=== PATIENT | female | born 1980 | race American Indian/Alaskan Native ===

== ENCOUNTER 2017-08-02 02:50 | Inpatient (IN) | payer OTHER ==
[2017-08-02 03:56] LABS: Basophils # (Auto) 0.1 K/mm3 (0.0-0.1); Basophils % (Auto) 0.7 % (0.0-1.8); Eosinophils # (Auto) 0.1 K/mm3 (0.0-0.4); Eosinophils % (Auto) 0.8 % (0.0-4.3); Hematocrit 37.4 % (30.3-42.9); Hemoglobin 12.1 gm/dl (10.1-14.3); Lymphocytes % (Auto) 33.9 % (13.4-35.0); Mean Corpuscular HGB Conc 32 % (30-34); Mean Corpuscular Volume 80 fl (79-97); Monocytes # (Auto) 0.7 K/mm3 (0.0-0.8); Monocytes % (Auto) 7.4 % (0.0-7.3); Red Cell Distribution Width 16.5 % (13.2-15.2)
[2017-08-02 05:28] LABS: BUN/Creatinine Ratio 17; Blood Urea Nitrogen 10 mg/dL (7-17); Calcium 8.8 mg/dL (8.4-10.2); Hemolysis Index 11
[2017-08-02 05:45] LABS: Mean Corpuscular Hemoglobin 26 pg (28-32); Platelet Count 285 K/mm3 (140-440)
[2017-08-02] MEDS ORDERED: K-DUR PO ONE (06:11)
[2017-08-02] MEDS ORDERED: ZOFRAN IV ONE (06:25)
[2017-08-02] MEDS ORDERED: LOPRESSOR IV ONE (06:25)
[2017-08-02] MEDS ORDERED: NORCO 5/325 PO ONE (06:25)
--- NOTE | 2017-08-02 06:30 | Emergency Department Report ---
ED Chest Pain HPI - General Chief Complaint: Chest Pain Stated Complaint: CHEST PAIN Time Seen by Provider: 08/02/17 06:10 Source: patient, EMS Mode of arrival: Stretcher Limitations: No Limitations - History of Present Illness Initial Comments: 37-year-old female presents to the emergency department with a complaint of some left-sided chest pain going on since about 1 AM this morning. She came in by EMS and received sublingual nitroglycerin and full dose aspirin. First the chest pain was more sharp and she says that the nitroglycerin helped with that but she still has rather intense dull pain/ pressure. It is associated with some nausea without vomiting, and some shortness of breath. She has a past medical history of CHF, diabetes, hypertension, kidney stones, asthma. Patient presents with very elevated blood pressure and says she is currently on lisinopril and hydrochlorothiazide but does not feel like the medications are working despite complaints. She also says that she was supposed to be switched from the lisinopril to another blood pressure medication because of a cough but she lost insurance and does not have a primary care physician or acupuncturist. She denies any tobacco or illicit drug use or abuse. No recent travel or sick contacts at home. She does feel like she is retaining some fluid to the legs. Severity scale (0 -10): 9 - Related Data Home Medications Medication Instructions Recorded Confirmed Last Taken Lisinopril [Zestril TAB] 40 mg PO QDAY 01/21/14 01/21/14 Unknown Previous Rx's Medication Instructions Recorded Last Taken Type Labetalol [Normodyne TAB] 200 mg PO BID #60 tablet 09/20/14 Unknown Rx Allergies Allergy/AdvReac Type Severity Reaction Status Date / Time haloperidol [From Haldol] Allergy Seizure Verified 11/11/13 17:44 haloperidol lactate Allergy Seizure Verified 11/11/13 17:44 [From Haldol] Heart Score - HEART Score History: Moderately suspicious EKG: Non-specific Age: < 45 Risk factors: > 3 risk factors or hx of atherosclerotic disease Troponin: < normal limit HEART Score: 4 - Critical Actions Critical Actions: 4-6 pts:12-16.6% risk of adverse cardiac event. Should be admitted ED Review of Systems ROS: Stated complaint: CHEST PAIN Other details as noted in HPI Comment: All other systems reviewed and negative Constitutional: denies: chills, fever Eyes: denies: eye pain, eye discharge, vision change ENT: denies: ear pain, throat pain Respiratory: shortness of breath. denies: cough Cardiovascular: chest pain, edema Gastrointestinal: nausea. denies: abdominal pain Genitourinary: denies: urgency, dysuria, discharge Musculoskeletal: denies: back pain, arthralgia Skin: denies: rash, lesions Neurological: denies: headache, numbness ED Past Medical Hx - Past Medical History Previous Medical History?: Yes Hx Hypertension: Yes Hx Heart Attack/AMI: No Hx Congestive Heart Failure: Yes Hx Diabetes: Yes Hx Deep Vein Thrombosis: No Hx Pulmonary Embolism: No Hx Liver Disease: No Hx Renal Disease: No Hx Seizures: Yes (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) Hx Kidney Stones: Yes Hx Asthma: Yes Hx COPD: No Hx Tuberculosis: No Hx Dementia: No Hx HIV: No Additional medical history: Endometriosis - Surgical History Past Surgical History?: Yes Hx Coronary Stent: No Hx Open Heart Surgery: No Hx Pacemaker: No Hx Internal Defibrillator: No Hx Cholecystectomy: No Hx Appendectomy: Yes Hx Breast Surgery: No Additional Surgical History: D&C - Social History Smoking Status: Never Smoker - Medications Home Medications: Home Medications Medication Instructions Recorded Confirmed Last Taken Type Lisinopril [Zestril TAB] 40 mg PO QDAY 01/21/14 01/21/14 Unknown History Labetalol [Normodyne TAB] 200 mg PO BID #60 tablet 09/20/14 Unknown Rx ED Physical Exam - General Limitations: No Limitations - Other Other exam information: GENERAL: The patient is well-developed well-nourished. HENT: Normocephalic. Atraumatic. Patient has moist mucous membranes. EYES: Extraocular motions are intact. Pupils equal reactive to light bilaterally. NECK: Supple. Trachea is midline. CHEST/LUNGS: Clear to auscultation. There is no respiratory distress noted. Chest pain is not reproducible to palpation of the chest wall. HEART/CARDIOVASCULAR: Regular. There is mild tachycardia. There is no murmur. ABDOMEN: Abdomen is soft, nontender. Patient has normal bowel sounds. Morbidly obese habitus. SKIN: Skin is warm and dry. Mild nonpitting swelling to the bilateral lower 70s. NEURO: The patient is awake, alert, and oriented. The patient is cooperative. The patient has no focal neurologic deficits. The patient has normal speech. MUSCULOSKELETAL: There is no tenderness or deformity. There is no limitation range of motion. There is no evidence of acute injury. ED Course Vital Signs 08/02/17 08/02/17 08/02/17 03:02 03:27 03:30 Pulse Rate 106 H 113 H 103 H Respiratory 17 20 17 Rate Blood Pressure 184/105 O2 Sat by Pulse Oximetry 08/02/17 08/02/17 08/02/17 03:31 03:46 04:00 Pulse Rate 100 H Respiratory 20 15 11 L Rate Blood Pressure 184/105 180/107 O2 Sat by Pulse 100 Oximetry 08/02/17 08/02/17 08/02/17 04:16 04:30 04:46 Pulse Rate Respiratory 13 12 12 Rate Blood Pressure 180/107 180/107 182/117 O2 Sat by Pulse Oximetry 08/02/17 08/02/17 08/02/17 05:00 05:16 05:30 Pulse Rate Respiratory 8 L 11 L 13 Rate Blood Pressure 193/133 193/133 187/108 O2 Sat by Pulse Oximetry 08/02/17 08/02/17 08/02/17 05:45 06:00 06:15 Pulse Rate Respiratory 15 38 H 16 Rate Blood Pressure 189/95 169/94 O2 Sat by Pulse Oximetry 08/02/17 08/02/17 08/02/17 06:45 07:01 07:15 Pulse Rate Respiratory 17 13 20 Rate Blood Pressure 175/125 146/90 146/90 O2 Sat by Pulse Oximetry 08/02/17 07:31 Pulse Rate Respiratory 16 Rate Blood Pressure 143/83 O2 Sat by Pulse Oximetry - Pulse Oximetry Interpretation Digit-Finger Initial Pulse Oximetry Readin O2 Sat by Pulse Oximetry: 100 Actions Taken: none Additional Comments: normal MARISA score - Marisa Score Age > 65: (0) No Aspirin use within the Past 7 Days: (0) No 3 or more CAD Risk Factors: (1) Yes 2 or more Angina events in past 24 hrs: (1) Yes Known CAD with more than 50% Stenosis: (0) No Elevated Cardiac Markers: (0) No ST Deviation Greater than 0.5mm: (0) No MARISA Score: 2 ED Medical Decision Making - Lab Data Result diagrams: 08/02/17 03:33 08/02/17 03:33 - EKG Data -: EKG Interpreted by Me EKG shows normal: sinus rhythm, axis, intervals, QRS complexes (LVH, Q waves to the septal leads and lead 3), ST-T waves (there is some early repolarization, T- wave inversions in 2 leads 1, aVL) Rate: tachycardia (105 bpm) - EKG Data When compared to previous EKG there are: changes noted (T-wave inversions to these 1 and aVL not previously seen) Interpretation: other (sinus tachycardia, LVH, Q waves to the inferior leads, T- wave inversions in 2 leads 1 and aVL) - Radiology Data Radiology results: report reviewed, image reviewed interpreted by me: Chest x-ray does not show any acute process. There are no pleural effusions, obvious pneumonia and there is no pneumothorax. VQ scan is low probability for pulmonary embolus - Medical Decision Making Patient presents with some chest pain that started last night. So far negative troponins 2 but she had an elevated and equivocal d-dimer. VQ scan done that is low probability for pulmonary embolism. Chest x-ray does not show any acute process. The patient has morbid obesity, hypertensive issues, diabetes and questionably a family history of early heart disease. She has not had a stress test in many years and therefore she will be admitted to the hospital for further evaluation and treatment and was accepted for admission by the hospitalist service. I spoke with Dr Lazo regarding this admission. - Differential Diagnosis OK, PE, Costochondritis, GERD Critical Care Time: No Critical care attestation.: If time is entered above; I have spent that time in minutes in the direct care of this critically ill patient, excluding procedure time. ED Disposition Clinical Impression: Hypertensive urgency, Hypokalemia Chest pain Qualifiers: Chest pain type: unspecified Qualified Code(s): R07.9 - Chest pain, unspecified Disposition: 09 OP ADMIT IP TO THIS HOSP Is pt being admited?: Yes Condition: Stable Instructions: Chest Pain (ED) Referrals: PRIMARY CARE, [Primary Care Provider] - 3-5 Days Time of Disposition: 10:04
--- NOTE | 2017-08-02 06:32 | XRay Report ---
FINAL REPORT EXAM: XR CHEST 1V AP HISTORY: CP TECHNIQUE: A portable upright view the chest was submitted. FINDINGS: The heart size is at the upper limits of normal. The lungs are clear. There is no evidence of congestion or effusion. There are EKG leads overlying the chest wall. The skeletal structures do not show any acute changes. IMPRESSION: No active chest disease.
--- NOTE | 2017-08-02 08:30 | Nuclear Medicine Report ---
LUNG SCAN, VENTILATION AND PERFUSION: History: Chest pain, elevated d-dimer. Technique: 5mci of Tc99m MAA was infused for the perfusion images. 15mci XE 133 gas was inhaled for the ventilatory images. Correlation is made with a chest x-ray dated 08/02/17. Findings: Inhalation of Xenon gas demonstrates a normal distribution of the activity throughout both lungs. The wash out phases show no focal retention of activity. After injection of Technetium 99m macroaggregated albumin gamma camera imaging of the lungs in multiple projections demonstrates normal pulmonary contours with a homogeneous distribution of activity. No focal areas of perfusion deficiency are identified. IMPRESSION: Low probability for pulmonary embolus.
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
[2017-08-02] MEDS ORDERED: SODIUM CHLORIDE FLUSH SYRINGE 10 ML IV PRN (10:14)
[2017-08-02 10:42] LABS: Basophils % (Auto) 0.5 % (0.0-1.8); Eosinophils # (Auto) 0.1 K/mm3 (0.0-0.4); Eosinophils % (Auto) 0.9 % (0.0-4.3); Hematocrit 32.8 % (30.3-42.9); Hemoglobin 10.7 gm/dl (10.1-14.3); Lymphocytes # (Auto) 2.4 K/mm3 (1.2-5.4); Lymphocytes % (Auto) 32.3 % (13.4-35.0); Mean Corpuscular HGB Conc 33 % (30-34); Mean Corpuscular Volume 78 fl (79-97); Monocytes # (Auto) 0.9 K/mm3 (0.0-0.8); Platelet Count 327 K/mm3 (140-440); Red Blood Count 4.23 M/mm3 (3.65-5.03); Red Cell Distribution Width 15.8 % (13.2-15.2)
[2017-08-02 10:43] LABS: Mean Corpuscular Hemoglobin 25 pg (28-32)
[2017-08-02 11:10] LABS: BUN/Creatinine Ratio 17; Blood Urea Nitrogen 10 mg/dL (7-17); Calcium 8.4 mg/dL (8.4-10.2); Hemolysis Index 8
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
[2017-08-02] MEDS: TYLENOL PO PRN (21:38)
[2017-08-02] MEDS: NORMODYNE PO SCH (21:39)
[2017-08-03] MEDS: TYLENOL PO PRN ×3 (03:38→22:06)
[2017-08-03] MEDS ORDERED: PERCOCET 5/325 PO ONE (06:26)
[2017-08-03] MEDS ORDERED: ZOFRAN PO PRN (06:27)
[2017-08-03] MEDS ORDERED: ZOFRAN IV PRN (06:37)
[2017-08-03] MEDS ORDERED: D50W (25GM) Syringe IV PRN (10:00)
[2017-08-03] MEDS ORDERED: NORVASC PO SCH ×2 (10:00)
[2017-08-03] MEDS ORDERED: LOVENOX SUB-Q SCH (10:00)
[2017-08-03] MEDS: HCTZ PO SCH (10:37)
[2017-08-03] MEDS: NORMODYNE PO SCH ×2 (10:37→22:07)
--- NOTE | 2017-08-03 10:40 | Progress Note ---
Assessment and Plan Chest pain, atypical Hypertension Obesity Recommend: Optimal blood pressure control. Thallium stress test ordered by the medical service will be completed tomorrow s /t 48hr wash out following ventilation scan. Subjective Date of service: 08/03/17 Interval history: Patient complains of headaches. Blood pressure is better. Objective Vital Signs Temp Pulse Resp Resp BP BP Pulse Ox 08/03/17 07:44 97.9 F 93 H 18 149/87 92 08/03/17 06:51 18 08/03/17 05:00 88 08/03/17 04:22 98.9 F 92 H 18 137/61 91 08/03/17 03:38 18 08/03/17 03:23 92 H 137/61 91 08/03/17 00:17 98.9 F 101 H 18 124/64 91 08/02/17 22:00 20 08/02/17 21:50 98 H 08/02/17 21:39 94 H 128/81 08/02/17 21:38 20 08/02/17 20:04 98.2 F 92 H 18 128/81 94 08/02/17 19:29 92 H 128/81 96 08/02/17 17:24 98.3 F 92 H 18 138/83 96 08/02/17 14:45 102 H 35 H 156/105 08/02/17 14:00 95 08/02/17 13:00 91 H 17 155/92 08/02/17 12:00 100 H 43 H 156/91 94 08/02/17 11:00 94 H 28 H 133/84 - Physical Examination General: No Apparent Distress HEENT: Positive: PERRL Cardiac: Positive: Reg Rate and Rhythm Neuro: Positive: Grossly Intact Extremities: Absent: edema - Labs and Meds CBC 08/02/17 Range/Units 10:25 WBC 7.5 (4.5-11.0) K/mm3 RBC 4.23 (3.65-5.03) M/mm3 Hgb 10.7 (10.1-14.3) gm/dl Hct 32.8 (30.3-42.9) % Plt Count 327 (140-440) K/mm3 Lymph # 2.4 (1.2-5.4) K/mm3 [place] # 0.9 H (0.0-0.8) K/mm3 Eos # 0.1 (0.0-0.4) K/mm3 Baso # 0.0 (0.0-0.1) K/mm3 Comprehensive Metabolic Panel 08/02/17 Range/Units 10:22 Sodium 140 (137-145) mmol/L Potassium 3.2 L (3.6-5.0) mmol/L Chloride 98.4 (98-107) mmol/L Carbon Dioxide 31 H (22-30) mmol/L BUN 10 (7-17) mg/dL Creatinine 0.6 L (0.7-1.2) mg/dL Glucose 153 H (65-100) mg/dL Calcium 8.4 (8.4-10.2) mg/dL
[2017-08-03] MEDS ORDERED: MOTRIN PO PRN (11:00)
[2017-08-03] MEDS ORDERED: PNEUMOVAX 23 IM ONE (12:00)
--- NOTE | 2017-08-03 12:27 | Progress Note ---
Assessment and Plan Assessment and plan: Chest pain. Patient will be scheduled for stress thallium in a.m. Cardiology consultation. Follow cardiac isoenzymes and serial EKG. Patient with elevated d-dimer but VQ scan was noted as low probability. Elevated d-dimer. As above. Accelerated hypertension. Start antihypertensive medications of labetalol twice a day, Norvasc daily and continue hydrochlorothiazide. Patient with likely allergy to lisinopril-cough. Allergy. Lisinopril. Diabetes mellitus type 2. ? Diet-controlled. Patient reports a previous history of gestational diabetes but also documented on her hospitalization of 2014. We will initiate sliding scale regular insulin and Accu-Cheks. Morbid Obesity. Patient with a BMI of 49.4. Patient will be counseled on dieting and weight loss are discharged. Probable OHS/MAAME. History Interval history: No new issues overnight Hospitalist Physical - Constitutional Vitals: Temp Pulse Resp BP Pulse Ox 97.9 F 99 H 18 149/87 92 08/03/17 07:44 08/03/17 10:37 08/03/17 07:44 08/03/17 10:37 08/03/17 07:44 General appearance: Present: no acute distress, obese - EENT Eyes: Present: PERRL, EOM intact ENT: hearing intact, clear oral mucosa, dentition normal - Neck Neck: Present: supple, normal ROM - Respiratory Respiratory effort: normal Respiratory: bilateral: CTA - Cardiovascular Rhythm: regular Heart Sounds: Present: S1 & S2. Absent: gallop, rub - Extremities Extremities: no ischemia, No edema, Full ROM - Abdominal General gastrointestinal: soft, non-tender, non-distended, normal bowel sounds - Integumentary Integumentary: Present: clear, warm, dry - Neurologic Neurologic: CNII-XII intact, moves all extremities Results - Labs CBC & Chem 7: 08/02/17 10:25 08/02/17 10:22 Labs: Laboratory Last Values WBC 7.5 K/mm3 (4.5-11.0) 08/02/17 10:25 RBC 4.23 M/mm3 (3.65-5.03) 08/02/17 10:25 Hgb 10.7 gm/dl (10.1-14.3) 08/02/17 10:25 Hct 32.8 % (30.3-42.9) 08/02/17 10:25 MCV 78 fl (79-97) L 08/02/17 10:25 MCH 25 pg (28-32) L 08/02/17 10:25 MCHC 33 % (30-34) 08/02/17 10:25 RDW 15.8 % (13.2-15.2) H 08/02/17 10:25 Plt Count 327 K/mm3 (140-440) 08/02/17 10:25 Lymph % (Auto) 32.3 % (13.4-35.0) 08/02/17 10:25 [place] % (Auto) 12.0 % (0.0-7.3) H 08/02/17 10:25 Eos % (Auto) 0.9 % (0.0-4.3) 08/02/17 10:25 Baso % (Auto) 0.5 % (0.0-1.8) 08/02/17 10:25 Lymph # 2.4 K/mm3 (1.2-5.4) 08/02/17 10:25 [place] # 0.9 K/mm3 (0.0-0.8) H 08/02/17 10:25 Eos # 0.1 K/mm3 (0.0-0.4) 08/02/17 10:25 Baso # 0.0 K/mm3 (0.0-0.1) 08/02/17 10:25 Seg Neutrophils % 54.3 % (40.0-70.0) 08/02/17 10:25 Seg Neutrophils # 4.1 K/mm3 (1.8-7.7) 08/02/17 10:25 D-Dimer 578.18 ng/mlDDU (0-234) H 08/02/17 06:43 Sodium 140 mmol/L (137-145) 08/02/17 10:22 Potassium 3.2 mmol/L (3.6-5.0) L 08/02/17 10:22 Chloride 98.4 mmol/L (98-107) 08/02/17 10:22 Carbon Dioxide 31 mmol/L (22-30) H 08/02/17 10:22 Anion Gap 14 mmol/L 08/02/17 10:22 BUN 10 mg/dL (7-17) 08/02/17 10:22 Creatinine 0.6 mg/dL (0.7-1.2) L 08/02/17 10:22 Estimated GFR > 60 ml/min 08/02/17 10:22 BUN/Creatinine Ratio 17 % 08/02/17 10:22 Glucose 153 mg/dL (65-100) H 08/02/17 10:22 POC Glucose 164 (70-105) H 08/03/17 07:19 Calcium 8.4 mg/dL (8.4-10.2) 08/02/17 10:22 Troponin T < 0.010 ng/mL (0.00-0.029) 08/02/17 09:39 NT-Pro-B Natriuret Pep 77.49 pg/mL (0-450) 08/02/17 06:37
[2017-08-03] MEDS: HumuLIN R SUB-Q SCH ×3 (13:05→22:09)
--- NOTE | 2017-08-04 07:39 | Discharge Summary ---
Providers - Providers Date of Admission: 08/02/17 10:17 Date of discharge: 08/04/17 Attending physician: SIGIFREDO GALLO 08/02/17 Consult to Cardiac Rehabilitation [CONS] Routine Reason For Exam: Phase I 08/02/17 10:14 Consult to Cardiology [CONS] Routine Consulting Provider: LA PAIGE Reason For Exam: cp Primary care physician: CHILD THERAPIST Hospitalization Reason for admission: cp Condition: Stable Hospital course: This is a 37-year-old morbidly obese female with significant past medical history of chronic hypertension who was noncompliant with medical therapy and presents through the emergency department with complaints of atypical chest pain primarily in the left upper chest unrelated to exertion and poorly characterized. On admission, patient was noted to have accelerated hypertension with a systolic blood pressure of 184. EKG revealed normal sinus rhythm with LVH but no ST-T wave changes. Cardiology was consulted and patient underwent thallium stress test which was found to be negative. Patient was noted have elevated d-dimer and underwent pulmonary imaging which was low probability for PE. Echocardiogram revealed global left ventricular systolic function that was normal with EF 55-60%. Patient did have mild to moderate concentric LVH. Right ventricular systolic pressure calculated at 35 mmHg feeling mild pulmonary hypertension. Etiology of chest pain is felt to be secondary to GERD. Patient's blood pressure was controlled with Norvasc and labetalol. Patient reported cough associated with REHAN inhibitor therefore discontinued and added to allergy list. Patient is felt to have received maximal hospital benefit and will be discharged home. Dedicated discharge time 32 minutes. Disposition: - TO HOME OR SELFCARE Time spent for discharge: 32 - Discharge Diagnoses (1) GERD (gastroesophageal reflux disease) Status: Acute (2) Chest pain Status: Acute (3) Hypertensive urgency Status: Acute (4) Accelerated hypertension Status: Acute Core Measure Documentation - Palliative Care Palliative Care/ Comfort Measures: Not Applicable - Core Measures Any of the following diagnoses?: none Exam - Constitutional Vitals: Temp Pulse Resp BP Pulse Ox 98.7 F 90 18 136/80 99 08/03/17 23:55 08/04/17 00:43 08/04/17 00:43 08/03/17 23:55 08/04/17 00:43 General appearance: Present: no acute distress, well-nourished - EENT Eyes: Present: PERRL ENT: hearing intact, clear oral mucosa - Neck Neck: Present: supple, normal ROM - Respiratory Respiratory effort: normal Respiratory: bilateral: CTA - Cardiovascular Heart Sounds: Present: S1 & S2. Absent: rub, click - Extremities Extremities: pulses symmetrical, No edema Peripheral Pulses: within normal limits - Abdominal General gastrointestinal: Present: soft, non-tender, non-distended, normal bowel sounds Female genitourinary: Present: normal - Integumentary Integumentary: Present: clear, warm, dry - Musculoskeletal Musculoskeletal: gait normal, strength equal bilaterally - Psychiatric Psychiatric: appropriate mood/affect, intact judgment & insight - Neurologic Neurologic: CNII-XII intact, moves all extremities Plan Activity: no restrictions Weight Bearing Status: Full Weight Bearing Diet: low fat, low cholesterol, low salt Follow up with: PRIMARY CAREMD [Primary Care Provider] - 3-5 Days LA PAIGE MD [Staff Physician] - 7 Days Prescriptions: amLODIPine [Norvasc] 10 mg PO QDAY #30 tablet Hydrochlorothiazide [HCTZ] 25 mg PO QDAY #30 tablet Labetalol [Normodyne TAB] 200 mg PO BID #60 tablet
[2017-08-04] MEDS ORDERED: LEXISCAN IV ONE (09:40)
[2017-08-04] MEDS ORDERED: LOVENOX SUB-Q SCH (10:00)
[2017-08-04] MEDS ORDERED: NORVASC PO SCH (10:00)
--- NOTE | 2017-08-04 11:47 | Progress Note ---
Assessment and Plan - Patient Problems (1) Chest pain Current Visit: Yes Status: Acute Plan to address problem: Patient has atypical chest pain, a thallium stress test was performed today, results are pending. Echocardiogram was normal left ventricular systolic function, ejection fraction 55-60%. (2) Hypertensive urgency Current Visit: Yes Status: Acute Plan to address problem: Hypertension management as outlined, continue medical management. Subjective Date of service: 08/04/17 Interval history: Patient underwent a Persantine thallium stress test, results are pending. Objective Vital Signs Temp Pulse Resp Resp BP BP Pulse Ox 08/04/17 10:19 100 H 152/83 08/04/17 10:18 101 H 152/83 08/04/17 10:17 96 H 163/98 08/04/17 10:16 101 H 152/97 08/04/17 10:15 109 H 137/81 08/04/17 10:14 110 H 147/83 08/04/17 09:57 87 147/83 08/04/17 08:00 98.9 F 08/04/17 07:34 91 H 20 136/94 97 08/04/17 05:17 81 153/73 92 08/04/17 00:43 90 18 99 08/03/17 23:55 98.7 F 89 20 136/80 96 08/03/17 22:07 94 H 137/83 08/03/17 22:06 20 08/03/17 22:00 20 08/03/17 21:00 110 H 08/03/17 20:25 91 H 150 H 137/83 93 08/03/17 16:19 98.0 F 102 H 24 126/77 87 - Physical Examination General: No Apparent Distress HEENT: Positive: PERRL Neck: Positive: neck supple Cardiac: Positive: Reg Rate and Rhythm Lungs: Positive: Decreased Breath Sounds Neuro: Positive: Grossly Intact Abdomen: Positive: Soft Skin: Positive: Clear Extremities: Absent: edema
[2017-08-04] MEDS: NORMODYNE PO SCH (12:29)
[2017-08-04] MEDS: HumuLIN R SUB-Q SCH ×2 (12:30→12:33)
[2017-08-04] MEDS: HCTZ PO SCH (12:30)
--- NOTE | 2017-08-04 13:09 | Treadmill Report ---
THALLIUM STRESS TEST REPORT LEFT VENTRICLE: Left ventricular chamber size is within normal limits. Perfusion study demonstrates somewhat heterogeneous uptake of the tracer, but no significant defects identified. Normal apical thinning is noted. Gated analysis demonstrates normal left ventricular systolic function, ejection fraction 56%. CONCLUSION: No demonstrable ischemia on thallium perfusion imaging. Negative study. JOB# [id number] CA/NTS
[2017-08-04 17:50] VITALS: BP 149/81
== END 2017-08-04 17:56 | disposition home or self-care (01) | DRG 392 ==
LOC: ED 02:50 → 4A 10:17
PROVIDERS: ADMIT Hospitalist; ATTEND Hospitalist
DX: K21.9 Gastro-esophageal reflux disease without esophagitis (principal); I16.0 Hypertensive urgency; I50.9 Heart failure, unspecified; I11.0 Hypertensive heart disease with heart failure; E11.9 Type 2 diabetes mellitus without complications; J45.909 Unspecified asthma, uncomplicated; E66.01 Morbid (severe) obesity due to excess calories; E87.6 Hypokalemia; Z68.42 Body mass index [BMI] 45.0-49.9, adult; Z88.6 Allergy status to analgesic agent; Z91.19 Patient's noncompliance with other medical treatment and regimen
CPT/HCPCS: 36415; 71045; 78452; 78582; 80048; 82962; 83880; 84484; 84703; 85025; 85379; 90732; 93005; 93010; 93017; 93306; 94660; 96374; 96375; A9502; A9540; A9558; J1650; J1815; J2405; J2785

== ENCOUNTER 2018-02-21 14:21 | Inpatient (IN) | payer OTHER ==
[2018-02-21] MEDS ORDERED: TYLENOL PO STA (14:28)
[2018-02-21] MEDS ORDERED: NACL 0.9% 500 ML 500 ML IV ONE (14:28)
[2018-02-21] MEDS ORDERED: TYLENOL ONE (14:32)
[2018-02-21 14:53] LABS: Basophils % (Auto) 0.5 % (0.0-1.8); Eosinophils % (Auto) 0.3 % (0.0-4.3); Hematocrit 37.3 % (30.3-42.9); Hemoglobin 12.3 gm/dl (10.1-14.3); Lymphocytes # (Auto) 1.5 K/mm3 (1.2-5.4); Lymphocytes % (Auto) 25.8 % (13.4-35.0); Mean Corpuscular HGB Conc 33 % (30-34); Mean Corpuscular Volume 80 fl (79-97); Monocytes # (Auto) 0.7 K/mm3 (0.0-0.8); Monocytes % (Auto) 11.6 % (0.0-7.3); Platelet Count 283 K/mm3 (140-440); Red Blood Count 4.66 M/mm3 (3.65-5.03); Red Cell Distribution Width 16.1 % (13.2-15.2)
[2018-02-21] MEDS ORDERED: NACL 0.9% 1000 ML 0 ML ONE (14:57)
[2018-02-21 15:00] LABS: INR 0.97 (0.87-1.13)
[2018-02-21 15:04] LABS: Alanine Aminotransferase 16 units/L (7-56); Albumin 3.2 g/dL (3.9-5); BUN/Creatinine Ratio 9; Blood Urea Nitrogen 7 mg/dL (7-17); Calcium 8.5 mg/dL (8.4-10.2); Hemolysis Index 23
[2018-02-21] MEDS ORDERED: NACL 0.9% 1000 ML IV ONE (15:17)
--- NOTE | 2018-02-21 15:36 | Emergency Department Report ---
ED General Adult HPI - General Chief complaint: Fever Stated complaint: HTN/HIGH SUGAR Time Seen by Provider: 02/21/18 14:48 Source: patient Mode of arrival: Ambulatory Limitations: No Limitations - History of Present Illness Initial comments: Patient is a 37-year-old female past medical history of diabetes high blood pressure and asthma who presents with shortness of breath. Patient's symptoms of vertigo on a home trial last couple days she has been having productive cough with mucus. She is also complaining of mild abdominal pain as a 4 out of 10. She states that she has been around her son who is then having asthma exacerbations and recent hospitalization. Patient states that she has not tried any [id number] medications and has had fever no nausea no vomiting no dysuria. Severity scale (0 -10): 0 - Related Data Previous Rx's Medication Instructions Recorded Last Taken Type Labetalol [Normodyne TAB] 200 mg PO BID #60 tablet 08/04/17 Unknown Rx amLODIPine [Norvasc] 10 mg PO QDAY #30 tablet 08/04/17 Unknown Rx hydroCHLOROthiazide [HCTZ] 25 mg PO QDAY #30 tablet 08/04/17 Unknown Rx Allergies Allergy/AdvReac Type Severity Reaction Status Date / Time haloperidol [From Haldol] Allergy Seizure Verified 11/11/13 17:44 haloperidol lactate Allergy Seizure Verified 11/11/13 17:44 [From Haldol] lisinopril Allergy Unknown Verified 08/02/17 10:06 ED Review of Systems ROS: Stated complaint: HTN/HIGH SUGAR Other details as noted in HPI Constitutional: denies: chills, fever Eyes: denies: eye pain, eye discharge, vision change ENT: denies: ear pain, throat pain Respiratory: cough, shortness of breath. denies: wheezing Cardiovascular: denies: chest pain, palpitations Endocrine: no symptoms reported Gastrointestinal: denies: abdominal pain, nausea, diarrhea Genitourinary: denies: urgency, dysuria, discharge Musculoskeletal: denies: back pain, joint swelling, arthralgia Skin: denies: rash, lesions Neurological: denies: headache, weakness, paresthesias Psychiatric: denies: anxiety, depression Hematological/Lymphatic: denies: easy bleeding, easy bruising ED Past Medical Hx - Past Medical History Previous Medical History?: Yes Hx Hypertension: Yes Hx Heart Attack/AMI: No Hx Congestive Heart Failure: Yes Hx Diabetes: Yes Hx Deep Vein Thrombosis: No Hx Pulmonary Embolism: No Hx Liver Disease: No Hx Renal Disease: No Hx Seizures: Yes (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) Hx Kidney Stones: Yes Hx Asthma: Yes Hx COPD: No Hx Tuberculosis: No Hx Dementia: No Hx HIV: No Additional medical history: Endometriosis - Surgical History Past Surgical History?: Yes Hx Coronary Stent: No Hx Open Heart Surgery: No Hx Pacemaker: No Hx Internal Defibrillator: No Hx Cholecystectomy: No Hx Appendectomy: Yes Hx Breast Surgery: No Additional Surgical History: D&C - Social History Smoking Status: Never Smoker Substance Use Type: None - Medications Home Medications: Home Medications Medication Instructions Recorded Confirmed Last Taken Type Labetalol [Normodyne TAB] 200 mg PO BID #60 tablet 08/04/17 Unknown Rx amLODIPine [Norvasc] 10 mg PO QDAY #30 tablet 08/04/17 Unknown Rx hydroCHLOROthiazide [HCTZ] 25 mg PO QDAY #30 tablet 08/04/17 Unknown Rx ED Physical Exam - General Limitations: No Limitations General appearance: alert, in no apparent distress - Head Head exam: Present: atraumatic, normocephalic - Eye Eye exam: Present: normal appearance - ENT ENT exam: Present: mucous membranes moist - Neck Neck exam: Present: normal inspection - Respiratory Respiratory exam: Present: normal lung sounds bilaterally. Absent: respiratory distress - Cardiovascular Cardiovascular Exam: Present: normal rhythm, tachycardia. Absent: systolic murmur, diastolic murmur, rubs, gallop - GI/Abdominal GI/Abdominal exam: Present: soft, normal bowel sounds - Extremities Exam Extremities exam: Present: normal inspection - Back Exam Back exam: Present: normal inspection - Neurological Exam Neurological exam: Present: alert, oriented X3 - Psychiatric Psychiatric exam: Present: normal affect, normal mood - Skin Skin exam: Present: warm, dry, intact, normal color. Absent: rash ED Course Vital Signs 02/21/18 02/21/18 02/21/18 14:25 17:02 17:06 Temperature 101.2 F H 100 F H Pulse Rate 127 H 112 H Respiratory 24 21 21 Rate Blood Pressure 194/107 Blood Pressure 174/103 [Left] O2 Sat by Pulse 94 95 95 Oximetry 02/21/18 18:00 Temperature Pulse Rate 111 H Respiratory 19 Rate Blood Pressure Blood Pressure 181/100 [Left] O2 Sat by Pulse 95 Oximetry ED Medical Decision Making - Lab Data Result diagrams: 02/21/18 14:50 02/21/18 14:35 Lab Results 02/21/18 02/21/18 02/21/18 Range/Units 14:28 14:35 14:35 WBC (4.5-11.0) K/mm3 RBC (3.65-5.03) M/mm3 Hgb (10.1-14.3) gm/dl Hct (30.3-42.9) % MCV (79-97) fl MCH (28-32) pg MCHC (30-34) % RDW (13.2-15.2) % Plt Count (140-440) K/mm3 Lymph % (Auto) (13.4-35.0) % Clark % (Auto) (0.0-7.3) % Eos % (Auto) (0.0-4.3) % Baso % (Auto) (0.0-1.8) % Lymph # (1.2-5.4) K/mm3 Clark # (0.0-0.8) K/mm3 Eos # (0.0-0.4) K/mm3 Baso # (0.0-0.1) K/mm3 Seg Neutrophils % (40.0-70.0) % Seg Neutrophils # (1.8-7.7) K/mm3 PT (12.2-14.9) Sec. INR (0.87-1.13) VBG pH (7.320-7.420) Sodium 133 L (137-145) mmol/L Potassium 2.9 L* (3.6-5.0) mmol/L Chloride 90.2 L (98-107) mmol/L Carbon Dioxide 28 (22-30) mmol/L Anion Gap 18 mmol/L BUN 7 (7-17) mg/dL Creatinine 0.8 (0.7-1.2) mg/dL Estimated GFR > 60 ml/min BUN/Creatinine Ratio 9 % Glucose 275 H (65-100) mg/dL POC Glucose 268 H (70-105) Lactic Acid 3.50 H* (0.7-2.0) mmol/L Calcium 8.5 (8.4-10.2) mg/dL Total Bilirubin 0.30 (0.1-1.2) mg/dL AST 25 (5-40) units/L ALT 16 (7-56) units/L Alkaline Phosphatase 70 (35-129) units/L Total Protein 7.9 (6.3-8.2) g/dL Albumin 3.2 L (3.9-5) g/dL Albumin/Globulin Ratio 0.7 % Urine Color (Yellow) Urine Turbidity (Clear) Urine pH (5.0-7.0) Ur Specific Hammond (1.003-1.030) Urine Protein (Negative) mg/dL Urine Glucose (UA) (Negative) mg/dL Urine Ketones (Negative) mg/dL Urine Blood (Negative) Urine Nitrite (Negative) Urine Bilirubin (Negative) Urine Urobilinogen (<2.0) mg/dL Ur Leukocyte Esterase (Negative) Urine WBC (Auto) (0.0-6.0) /HPF Urine RBC (Auto) (0.0-6.0) /HPF U Epithel Cells (Auto) (0-13.0) /HPF Urine Mucus /HPF 02/21/18 02/21/18 02/21/18 Range/Units 14:35 14:50 14:50 WBC 5.9 (4.5-11.0) K/mm3 RBC 4.66 (3.65-5.03) M/mm3 Hgb 12.3 (10.1-14.3) gm/dl Hct 37.3 (30.3-42.9) % MCV 80 (79-97) fl MCH 26 L (28-32) pg MCHC 33 (30-34) % RDW 16.1 H (13.2-15.2) % Plt Count 283 (140-440) K/mm3 Lymph % (Auto) 25.8 (13.4-35.0) % Clark % (Auto) 11.6 H (0.0-7.3) % Eos % (Auto) 0.3 (0.0-4.3) % Baso % (Auto) 0.5 (0.0-1.8) % Lymph # 1.5 (1.2-5.4) K/mm3 Clark # 0.7 (0.0-0.8) K/mm3 Eos # 0.0 (0.0-0.4) K/mm3 Baso # 0.0 (0.0-0.1) K/mm3 Seg Neutrophils % 61.8 (40.0-70.0) % Seg Neutrophils # 3.6 (1.8-7.7) K/mm3 PT 13.3 (12.2-14.9) Sec. INR 0.97 (0.87-1.13) VBG pH 7.507 H (7.320-7.420) Sodium (137-145) mmol/L Potassium (3.6-5.0) mmol/L Chloride (98-107) mmol/L Carbon Dioxide (22-30) mmol/L Anion Gap mmol/L BUN (7-17) mg/dL Creatinine (0.7-1.2) mg/dL Estimated GFR ml/min BUN/Creatinine Ratio % Glucose (65-100) mg/dL POC Glucose (70-105) Lactic Acid (0.7-2.0) mmol/L Calcium (8.4-10.2) mg/dL Total Bilirubin (0.1-1.2) mg/dL AST (5-40) units/L ALT (7-56) units/L Alkaline Phosphatase (35-129) units/L Total Protein (6.3-8.2) g/dL Albumin (3.9-5) g/dL Albumin/Globulin Ratio % Urine Color (Yellow) Urine Turbidity (Clear) Urine pH (5.0-7.0) Ur Specific Hammond (1.003-1.030) Urine Protein (Negative) mg/dL Urine Glucose (UA) (Negative) mg/dL Urine Ketones (Negative) mg/dL Urine Blood (Negative) Urine Nitrite (Negative) Urine Bilirubin (Negative) Urine Urobilinogen (<2.0) mg/dL Ur Leukocyte Esterase (Negative) Urine WBC (Auto) (0.0-6.0) /HPF Urine RBC (Auto) (0.0-6.0) /HPF U Epithel Cells (Auto) (0-13.0) /HPF Urine Mucus /HPF 02/21/18 02/21/18 02/21/18 Range/Units 15:15 16:20 17:15 WBC (4.5-11.0) K/mm3 RBC (3.65-5.03) M/mm3 Hgb (10.1-14.3) gm/dl Hct (30.3-42.9) % MCV (79-97) fl MCH (28-32) pg MCHC (30-34) % RDW (13.2-15.2) % Plt Count (140-440) K/mm3 Lymph % (Auto) (13.4-35.0) % Clark % (Auto) (0.0-7.3) % Eos % (Auto) (0.0-4.3) % Baso % (Auto) (0.0-1.8) % Lymph # (1.2-5.4) K/mm3 Clark # (0.0-0.8) K/mm3 Eos # (0.0-0.4) K/mm3 Baso # (0.0-0.1) K/mm3 Seg Neutrophils % (40.0-70.0) % Seg Neutrophils # (1.8-7.7) K/mm3 PT (12.2-14.9) Sec. INR (0.87-1.13) VBG pH (7.320-7.420) Sodium (137-145) mmol/L Potassium (3.6-5.0) mmol/L Chloride (98-107) mmol/L Carbon Dioxide (22-30) mmol/L Anion Gap mmol/L BUN (7-17) mg/dL Creatinine (0.7-1.2) mg/dL Estimated GFR ml/min BUN/Creatinine Ratio % Glucose (65-100) mg/dL POC Glucose (70-105) Lactic Acid 3.70 H* 1.90 (0.7-2.0) mmol/L Calcium (8.4-10.2) mg/dL Total Bilirubin (0.1-1.2) mg/dL AST (5-40) units/L ALT (7-56) units/L Alkaline Phosphatase (35-129) units/L Total Protein (6.3-8.2) g/dL Albumin (3.9-5) g/dL Albumin/Globulin Ratio % Urine Color Yellow (Yellow) Urine Turbidity Clear (Clear) Urine pH 6.0 (5.0-7.0) Ur Specific Hammond 1.009 (1.003-1.030) Urine Protein 100 mg/dl (Negative) mg/dL Urine Glucose (UA) Neg (Negative) mg/dL Urine Ketones Neg (Negative) mg/dL Urine Blood Mod (Negative) Urine Nitrite Neg (Negative) Urine Bilirubin Neg (Negative) Urine Urobilinogen < 2.0 (<2.0) mg/dL Ur Leukocyte Esterase Neg (Negative) Urine WBC (Auto) 3.0 (0.0-6.0) /HPF Urine RBC (Auto) 2.0 (0.0-6.0) /HPF U Epithel Cells (Auto) 1.0 (0-13.0) /HPF Urine Mucus Few /HPF - EKG Data -: EKG Interpreted by Me - EKG Data 02/21/18 18:01 EKG shows sinus tachycardia at rate [address] segment elevation or T wave inversion normal axis - Radiology Data Radiology results: report reviewed Chest x-ray: Shows new patchy left lobe infiltrate concerning for pneumonia - Medical Decision Making Chief medical diagnosis: Sepsis secondary to Pneumonia Differential medical diagnosis: Urinary tract infection, hypokalemia I'll give patient 30 mL per kilo bolus, IV fluids, CBC BMP chest x-ray IV antibiotics and home patient to the hospital given her medical comorbidities and patient being septic. Discussed plan with patient agrees with plan Critical Care Time: Yes (40) Critical care attestation.: If time is entered above; I have spent that time in minutes in the direct care of this critically ill patient, excluding procedure time. Critical care time spent patient's bedside 20 minutes Critical care time spent patient's family 10 minutes Critical care time spent reviewing imaging and laboratory findings 10 minutes ED Disposition Clinical Impression: Hypokalemia Pneumonia Qualifiers: Pneumonia type: due to unspecified organism Laterality: left Lung location: lower lobe of lung Qualified Code(s): J18.1 - Lobar pneumonia, unspecified organism Sepsis Qualifiers: Sepsis type: sepsis due to unspecified organism Qualified Code(s): A41.9 - Sepsis, unspecified organism Disposition: 09 OP ADMIT IP TO THIS HOSP Is pt being admited?: Yes Does the pt Need Aspirin: No Condition: Stable Instructions: Bacterial Pneumonia (ED) Referrals: PRIMARY CARE, [Primary Care Provider] - 3-5 Days
--- NOTE | 2018-02-21 15:57 | XRay Report ---
FINAL REPORT EXAM: XR CHEST 1V AP HISTORY: possible Sepsis COMPARISON: Chest radiograph performed on 08/02/2017 TECHNIQUE: Single frontal view of the chest FINDINGS: The cardiomediastinal silhouette is normal in appearance. There is new patchy opacity in the left midlung. No pleural effusion or pneumothorax. No acute bony or soft tissue abnormality. IMPRESSION: New patchy opacity in the left midlung concerning for pneumonia.
[2018-02-21] MEDS: ROCEPHIN/NS 2 GM/100 ML 2 GM/100 ML BAG IV SCH (16:31)
[2018-02-21 16:53] LABS: Bilirubin,Urine NEG (Negative); Blood,Urine MOD (Negative); Color,Urine Yellow (Yellow); Mucus,Urine FEW /HPF; Urobilinogen,Urine < 2.0 mg/dL (<2.0)
[2018-02-21] MEDS: ZITHROMAX 500 MG in NACL 0.9% 250ML 250 ML IV SCH (17:02)
[2018-02-21] MEDS ORDERED: NACL 0.9% 1000 ML 1,000 ML ONE (18:20)
[2018-02-21] MEDS ORDERED: ROBITUSSIN AC PO ONE (18:35)
[2018-02-21] MEDS: LOVENOX SUB-Q SCH (18:54)
[2018-02-21] MEDS ORDERED: LOVENOX SUB-Q SCH (19:00)
[2018-02-21] MEDS ORDERED: K-DUR PO ONE ×2 (19:12→21:09)
[2018-02-21] MEDS ORDERED: DILAUDID ONE (19:31)
[2018-02-21] MEDS: DILAUDID IV PRN (19:31)
--- NOTE | 2018-02-21 20:49 | History and Physical Report ---
History of Present Illness Date of examination: 02/21/18 Date of admission: 02/21/18 18:29 Chief complaint: Fever cough and shortness of breath for 2 days History of present illness: History of Present Illness: 37-year-old -[place] female with morbid obesity hypertension type 2 diabetes and pericardial disease comes in for shortness of breath for the last 2 days. Also fever. Also mild abdominal pain in the epigastric region. Patient has been coughing mucoid sputum and having low-grade fever and body aches. Patient's son had asthma exacerbation in the last few days. No recent travel. No chest pain. Shortness of breath on minimal exertion. Also wheezing present. Past Medical History Previous Medical History?: Yes Hx Hypertension: Y Hx Congestive Heart Failure: Yes Hx Diabetes: Yes Hx Seizures: Yes (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) Hx Kidney Stones: Yes Hx Asthma: Yes Additional medical history: Endometriosis Surgical History Hx Appendectomy: Yes Additional Surgical History: D&C Social History Smoking Status: Never Smoker Substance Use Type: None Family history Htn Medications Home Medications: Home Medications Medication Instructions Recorded Confirmed Last Taken Type Labetalol [Normodyne TAB] 200 mg PO BID #60 tablet 08/04/17 Unknown Rx amLODIPine [Norvasc] 10 mg PO QDAY #30 tablet 08/04/17 Unknown Rx hydroCHLOROthiazide [HCTZ] 25 mg PO QDAY #30 tablet 08/04/17 Unknown Rx Review of Systems ROS: Stated complaint: HTN/HIGH SUGAR Other details as noted in HPI Constitutional: denies: chills, fever Eyes: denies: eye pain, eye discharge, vision change ENT: denies: ear pain, throat pain Respiratory: cough, shortness of breath. denies: wheezing Cardiovascular: denies: chest pain, palpitations Endocrine: no symptoms reported Gastrointestinal: denies: abdominal pain, nausea, diarrhea Genitourinary: denies: urgency, dysuria, discharge Musculoskeletal: denies: back pain, joint swelling, arthralgia Skin: denies: rash, lesions Neurological: denies: headache, weakness, paresthesias Psychiatric: denies: anxiety, depression Hematological/Lymphatic: denies: easy bleeding, easy bruising Medications and Allergies Allergies Allergy/AdvReac Type Severity Reaction Status Date / Time haloperidol [From Haldol] Allergy Seizure Verified 11/11/13 17:44 haloperidol lactate Allergy Seizure Verified 11/11/13 17:44 [From Haldol] lisinopril Allergy Unknown Verified 08/02/17 10:06 Home Medications Medication Instructions Recorded Confirmed Last Taken Type Labetalol [Normodyne TAB] 200 mg PO BID #60 tablet 08/04/17 Unknown Rx amLODIPine [Norvasc] 10 mg PO QDAY #30 tablet 08/04/17 Unknown Rx hydroCHLOROthiazide [HCTZ] 25 mg PO QDAY #30 tablet 08/04/17 Unknown Rx Active Meds: Active Medications Enoxaparin Sodium (Lovenox) 40 mg SUB-Q QDAY [facility] Last Admin: 02/21/18 18:54 Dose: 40 mg Documented by: Hydromorphone HCl (Dilaudid) 0.5 mg IV Q3H PRN PRN Reason: Pain , Severe (7-10) Last Admin: 02/21/18 19:31 Dose: 0.5 mg Documented by: Azithromycin 500 mg/ Sodium (Chloride) 250 mls @ 250 mls/hr IV Q24HR MICHELLE; Protocol Last Admin: 02/21/18 17:02 Dose: 250 mls/hr Documented by: Ceftriaxone Sodium (Rocephin/Ns 2 Gm/100 Ml) 2 gm in 100 mls @ 200 mls/hr IV Q24HR MICEHLLE; Protocol Last Admin: 02/21/18 16:31 Dose: 200 mls/hr Documented by: Exam - Physical Exam Narrative exam: Lying in bed comfortably - Constitutional Vitals: Temp Pulse Resp BP Pulse Ox 99.6 F 106 H 20 152/86 92 02/21/18 19:25 02/21/18 19:25 02/21/18 19:31 02/21/18 19:25 02/21/18 19:25 General appearance: Present: mild distress, well-nourished - EENT Eyes: Present: PERRL ENT: hearing intact, clear oral mucosa - Neck Neck: Present: supple, normal ROM - Respiratory Respiratory effort: normal Respiratory: right: rales, bilateral: CTA, rhonchi - Cardiovascular Heart rate: 122 Rhythm: regular Heart Sounds: Present: S1 & S2. Absent: rub, click - Extremities Extremities: no ischemia, pulses intact, pulses symmetrical, No edema Peripheral Pulses: within normal limits - Abdominal General gastrointestinal: Present: soft, non-tender, non-distended, normal bowel sounds Female genitourinary: Present: normal - Integumentary Integumentary: Present: clear, warm, dry - Musculoskeletal Musculoskeletal: gait normal, strength equal bilaterally - Psychiatric Psychiatric: appropriate mood/affect, intact judgment & insight - Neurologic Neurologic: CNII-XII intact, moves all extremities - Allied Health Allied health notes reviewed: nursing, case management Results - Labs CBC & Chem 7: 02/21/18 14:50 02/21/18 14:35 Labs: Laboratory Last Values WBC 5.9 K/mm3 (4.5-11.0) 02/21/18 14:50 RBC 4.66 M/mm3 (3.65-5.03) 02/21/18 14:50 Hgb 12.3 gm/dl (10.1-14.3) 02/21/18 14:50 Hct 37.3 % (30.3-42.9) 02/21/18 14:50 MCV 80 fl (79-97) 02/21/18 14:50 MCH 26 pg (28-32) L 02/21/18 14:50 MCHC 33 % (30-34) 02/21/18 14:50 RDW 16.1 % (13.2-15.2) H 02/21/18 14:50 Plt Count 283 K/mm3 (140-440) 02/21/18 14:50 Lymph % (Auto) 25.8 % (13.4-35.0) 02/21/18 14:50 [place] % (Auto) 11.6 % (0.0-7.3) H 02/21/18 14:50 Eos % (Auto) 0.3 % (0.0-4.3) 02/21/18 14:50 Baso % (Auto) 0.5 % (0.0-1.8) 02/21/18 14:50 Lymph # 1.5 K/mm3 (1.2-5.4) 02/21/18 14:50 [place] # 0.7 K/mm3 (0.0-0.8) 02/21/18 14:50 Eos # 0.0 K/mm3 (0.0-0.4) 02/21/18 14:50 Baso # 0.0 K/mm3 (0.0-0.1) 02/21/18 14:50 Seg Neutrophils % 61.8 % (40.0-70.0) 02/21/18 14:50 Seg Neutrophils # 3.6 K/mm3 (1.8-7.7) 02/21/18 14:50 PT 13.3 Sec. (12.2-14.9) 02/21/18 14:50 INR 0.97 (0.87-1.13) 02/21/18 14:50 VBG pH 7.507 (7.320-7.420) H 02/21/18 14:35 Sodium 133 mmol/L (137-145) L 02/21/18 14:35 Potassium 2.9 mmol/L (3.6-5.0) L* 02/21/18 14:35 Chloride 90.2 mmol/L (98-107) L 02/21/18 14:35 Carbon Dioxide 28 mmol/L (22-30) 02/21/18 14:35 Anion Gap 18 mmol/L 02/21/18 14:35 BUN 7 mg/dL (7-17) 02/21/18 14:35 Creatinine 0.8 mg/dL (0.7-1.2) 02/21/18 14:35 Estimated GFR > 60 ml/min 02/21/18 14:35 BUN/Creatinine Ratio 9 % 02/21/18 14:35 Glucose 275 mg/dL (65-100) H 02/21/18 14:35 POC Glucose 268 (70-105) H 02/21/18 14:28 Lactic Acid 1.90 mmol/L (0.7-2.0) 02/21/18 17:15 Calcium 8.5 mg/dL (8.4-10.2) 02/21/18 14:35 Total Bilirubin 0.30 mg/dL (0.1-1.2) 02/21/18 14:35 AST 25 units/L (5-40) 02/21/18 14:35 ALT 16 units/L (7-56) 02/21/18 14:35 Alkaline Phosphatase 70 units/L (35-129) 02/21/18 14:35 Total Protein 7.9 g/dL (6.3-8.2) 02/21/18 14:35 Albumin 3.2 g/dL (3.9-5) L 02/21/18 14:35 Albumin/Globulin Ratio 0.7 % 02/21/18 14:35 Urine Color Yellow (Yellow) 02/21/18 16:20 Urine Turbidity Clear (Clear) 02/21/18 16:20 Urine pH 6.0 (5.0-7.0) 02/21/18 16:20 Ur Specific [place] 1.009 (1.003-1.030) 02/21/18 16:20 Urine Protein 100 mg/dl mg/dL (Negative) 02/21/18 16:20 Urine Glucose (UA) Neg mg/dL (Negative) 02/21/18 16:20 Urine Ketones Neg mg/dL (Negative) 02/21/18 16:20 Urine Blood Mod (Negative) 02/21/18 16:20 Urine Nitrite Neg (Negative) 02/21/18 16:20 Urine Bilirubin Neg (Negative) 02/21/18 16:20 Urine Urobilinogen < 2.0 mg/dL (<2.0) 02/21/18 16:20 Ur Leukocyte Esterase Neg (Negative) 02/21/18 16:20 Urine WBC (Auto) 3.0 /HPF (0.0-6.0) 02/21/18 16:20 Urine RBC (Auto) 2.0 /HPF (0.0-6.0) 02/21/18 16:20 U Epithel Cells (Auto) 1.0 /HPF (0-13.0) 02/21/18 16:20 Urine Mucus Few /HPF 02/21/18 16:20 Influenza A (Rapid) Negative (Negative) 02/21/18 19:24 Influenza B (Rapid) Negative (Negative) 02/21/18 19:24 Short CBC 02/21/18 Range/Units 14:50 WBC 5.9 (4.5-11.0) K/mm3 Hgb 12.3 (10.1-14.3) gm/dl Hct 37.3 (30.3-42.9) % Plt Count 283 (140-440) K/mm3 BMP 02/21/18 14:35 Sodium 133 L Potassium 2.9 L* Chloride 90.2 L Carbon Dioxide 28 BUN 7 Creatinine 0.8 Glucose 275 H Calcium 8.5 Liver Function 02/21/18 Range/Units 14:35 Total Bilirubin 0.30 (0.1-1.2) mg/dL AST 25 (5-40) units/L ALT 16 (7-56) units/L Alkaline Phosphatase 70 (35-129) units/L Albumin 3.2 L (3.9-5) g/dL Urine 02/21/18 Range/Units 16:20 Urine Color Yellow (Yellow) Urine pH 6.0 (5.0-7.0) Ur Specific [place] 1.009 (1.003-1.030) Urine Protein 100 mg/dl (Negative) mg/dL Urine Glucose (UA) Neg (Negative) mg/dL Short CBC 02/21/18 Range/Units 14:50 WBC 5.9 (4.5-11.0) K/mm3 Hgb 12.3 (10.1-14.3) gm/dl Hct 37.3 (30.3-42.9) % Plt Count 283 (140-440) K/mm3 BMP 02/21/18 14:35 Sodium 133 L Potassium 2.9 L* Chloride 90.2 L Carbon Dioxide 28 BUN 7 Creatinine 0.8 Glucose 275 H Calcium 8.5 Liver Function 02/21/18 Range/Units 14:35 Total Bilirubin 0.30 (0.1-1.2) mg/dL AST 25 (5-40) units/L ALT 16 (7-56) units/L Alkaline Phosphatase 70 (35-129) units/L Albumin 3.2 L (3.9-5) g/dL Urine 02/21/18 Range/Units 16:20 Urine Color Yellow (Yellow) Urine pH 6.0 (5.0-7.0) Ur Specific [place] 1.009 (1.003-1.030) Urine Protein 100 mg/dl (Negative) mg/dL Urine Glucose (UA) Neg (Negative) mg/dL - Imaging and Cardiology EKG: report reviewed (sinus tachycardia heart rate of 125/minute LVH by voltage criteria no acute ST-T wave changes EKG interpreted by me) Chest x-ray: report reviewed Imaging and Cardiology: Chest x-ray FINDINGS: The cardiomediastinal silhouette is normal in appearance. There is new patchy opacity in the left midlung. No pleural effusion or pneumothorax. No acute bony or soft tissue abnormality. IMPRESSION: New patchy opacity in the left midlung concerning for pneumonia. Assessment and Plan Advance Directives: Yes (full code) VTE prophylaxis?: Chemical Plan of care discussed with patient/family: Yes - Patient Problems (1) SIRS (systemic inflammatory response syndrome) Current Visit: Yes Status: Acute Plan to address problem: Clinical picture consistent with SIRS Elevated lactic acid White count is not elevated Patient is not hypotensive (2) Pneumonia Current Visit: Yes Status: Acute Qualifiers: Pneumonia type: due to unspecified organism Laterality: left Lung location: lower lobe of lung Qualified Code(s): J18.1 - Lobar pneumonia, unspecified organism Plan to address problem: Left lung pneumonia in the mid lung region IV ceftriaxone and Zithromax initiated (3) Hypokalemia Current Visit: Yes Status: Acute Plan to address problem: Secondary to hydrochlorothiazide Hydrochlorothiazide discontinued Does not need to be on hydrochlorothiazide Losartan 100 mg by mouth daily added Supplemented (4) Hypertension Current Visit: Yes Status: Chronic Qualifiers: Hypertension type: essential hypertension Qualified Code(s): I10 - Essential (primary) hypertension Plan to address problem: Added losartan Hydrochlorothiazide discontinued because of the hypokalemia Patient was not on potassium supplement before admission Continue labetalol (5) Type 2 diabetes mellitus Current Visit: Yes Status: Chronic Qualifiers: Diabetes mellitus senior care insulin use: without senior care use Plan to address problem: Continue coverage Check A1c (6) Morbid obesity Current Visit: Yes Status: Chronic Plan to address problem: Patient is to follow-up with bariatric surgery To be counseled (7) DVT prophylaxis Current Visit: No Status: Acute Plan to address problem: Lovenox 40 mg subcutaneous daily and GI prophylaxis
[2018-02-21] MEDS ORDERED: SODIUM CHLORIDE FLUSH SYRINGE 10 ML IV PRN (21:04)
[2018-02-21] MEDS: SODIUM CHLORIDE FLUSH SYRINGE 10 ML IV SCH (22:00)
[2018-02-21] MEDS: NACL 0.9% 1000 ML 1,000 ML IV SCH (22:50)
[2018-02-21] MEDS: KCL 10MEQ/100ML 10 MEQ/100 ML BAG IV SCH (22:57)
[2018-02-21] MEDS: NORMODYNE PO SCH (23:04)
[2018-02-21] MEDS: NORVASC PO SCH (23:05)
[2018-02-21] MEDS: PEPCID PO SCH (23:05)
[2018-02-21] MEDS: HumaLOG SUB-Q SCH (23:06)
[2018-02-22] MEDS: KCL 10MEQ/100ML 10 MEQ/100 ML BAG IV SCH ×3 (00:11→02:22)
[2018-02-22] MEDS: ROBITUSSIN AC PO PRN ×4 (01:15→21:55)
[2018-02-22] MEDS: DILAUDID IV PRN ×4 (01:18→17:44)
[2018-02-22 06:02] LABS: Basophils % (Auto) 0.4 % (0.0-1.8); Eosinophils % (Auto) 0.5 % (0.0-4.3); Hematocrit 32.8 % (30.3-42.9); Hemoglobin 10.7 gm/dl (10.1-14.3); Lymphocytes # (Auto) 1.9 K/mm3 (1.2-5.4); Lymphocytes % (Auto) 40.3 % (13.4-35.0); Mean Corpuscular HGB Conc 33 % (30-34); Mean Corpuscular Volume 79 fl (79-97); Monocytes # (Auto) 0.6 K/mm3 (0.0-0.8); Platelet Count 231 K/mm3 (140-440); Red Blood Count 4.13 M/mm3 (3.65-5.03); Red Cell Distribution Width 16.2 % (13.2-15.2)
[2018-02-22 06:29] LABS: Alanine Aminotransferase 14 units/L (7-56); BUN/Creatinine Ratio 10; Blood Urea Nitrogen 6 mg/dL (7-17); Calcium 7.3 mg/dL (8.4-10.2); Hemolysis Index 21
[2018-02-22] MEDS: DUONEB *Not for PRN Use IH SCH ×4 (07:32→19:22)
[2018-02-22] MEDS: NACL 0.9% 1000 ML 1,000 ML IV SCH (11:22)
[2018-02-22] MEDS: ZOFRAN IV PRN ×2 (11:23→17:46)
[2018-02-22] MEDS: HumaLOG SUB-Q SCH ×3 (11:24→22:02)
[2018-02-22] MEDS: LOVENOX SUB-Q SCH (11:25)
[2018-02-22] MEDS: PEPCID PO SCH ×2 (11:26→21:55)
[2018-02-22] MEDS: NORMODYNE PO SCH ×2 (11:26→22:09)
[2018-02-22] MEDS: NORVASC PO SCH (11:26)
[2018-02-22] MEDS: ROCEPHIN/NS 2 GM/100 ML 2 GM/100 ML BAG IV SCH (11:27)
[2018-02-22] MEDS: SODIUM CHLORIDE FLUSH SYRINGE 10 ML IV SCH ×2 (11:47→21:55)
[2018-02-22] MEDS: ZITHROMAX 500 MG in NACL 0.9% 250ML 250 ML IV SCH (11:49)
[2018-02-22] MEDS ORDERED: AFLURIA QUAD 2018-2019 SYRINGE IM ONE (12:00)
[2018-02-22] MEDS ORDERED: PNEUMOVAX 23 IM ONE (12:00)
[2018-02-22] MEDS ORDERED: K-DUR PO ONE (12:25)
--- NOTE | 2018-02-22 15:05 | Progress Note ---
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 -Acute hypoxic respiratory failure, on Vm 35%: treat the pneumonia, and daily o2 weaning attempts -Left Pneumonia with Sepsis, poa: treat with iv abx, ivf and follow cultures -Hypokalemia: replace and recheck -Asthma: nebs treatment -Morbid Obesity, bmi 51: counseling done -Type 2 DM, a1c 10.9: counseling done, add ssi and long acting insulin -MAAME: consult respiratory for cpap -DVT/GI prophylaxis reviewed History Interval history: Patient was seen and examined. Follow-up on current diagnosis of sob. Overnight uneventful. Patient denies any chest pain, nausea/vomiting or severe headaches. Imaging, nursing note, chart, labs and old chart reviewed. Discussed with patient. Hospitalist Physical - Physical exam Narrative exam: Gen: ill appearing, mild increase accessory muscles, Awake, Alert, Orientated x 3, bmi 51 HEENT: NCAT, EOMI, PERRL, OP Clear Neck: supple, no adenopathy, no thyromegaly, no JVD CVS/Heart: RRR, normal S1S2, pulses present bilaterally Chest/Lungs: diminished bs bilateral, coarse bs on the left, Symmetrical chest expansion, good air entry bilaterally GI/Abdomen: soft, NTND, good bowel sounds, no guarding or rebound /Bladder: no suprapubic tenderness, no CVA or paraspinal tenderness Extermity/Skin: no c/c/e, no obvious rash MSK: FROM x 4 Neuro: CN 2-12 grossly intact, no new focal deficits Psych: calm - Constitutional Vitals: Temp Pulse Resp BP Pulse Ox 99.1 F 99 H 24 121/62 95 02/22/18 11:38 02/22/18 11:38 02/22/18 11:38 02/22/18 11:38 02/22/18 11:38 General appearance: Present: mild distress, well-nourished Results - Labs CBC & Chem 7: 02/22/18 05:35 02/22/18 05:35 Labs: Laboratory Last Values WBC 4.6 K/mm3 (4.5-11.0) 02/22/18 05:35 RBC 4.13 M/mm3 (3.65-5.03) 02/22/18 05:35 Hgb 10.7 gm/dl (10.1-14.3) 02/22/18 05:35 Hct 32.8 % (30.3-42.9) 02/22/18 05:35 MCV 79 fl (79-97) 02/22/18 05:35 MCH 26 pg (28-32) L 02/22/18 05:35 MCHC 33 % (30-34) 02/22/18 05:35 RDW 16.2 % (13.2-15.2) H 02/22/18 05:35 Plt Count 231 K/mm3 (140-440) 02/22/18 05:35 Lymph % (Auto) 40.3 % (13.4-35.0) H 02/22/18 05:35 [place] % (Auto) 13.0 % (0.0-7.3) H 02/22/18 05:35 Eos % (Auto) 0.5 % (0.0-4.3) 02/22/18 05:35 Baso % (Auto) 0.4 % (0.0-1.8) 02/22/18 05:35 Lymph # 1.9 K/mm3 (1.2-5.4) 02/22/18 05:35 [place] # 0.6 K/mm3 (0.0-0.8) 02/22/18 05:35 Eos # 0.0 K/mm3 (0.0-0.4) 02/22/18 05:35 Baso # 0.0 K/mm3 (0.0-0.1) 02/22/18 05:35 Seg Neutrophils % 45.8 % (40.0-70.0) 02/22/18 05:35 Seg Neutrophils # 2.1 K/mm3 (1.8-7.7) 02/22/18 05:35 PT 13.3 Sec. (12.2-14.9) 02/21/18 14:50 INR 0.97 (0.87-1.13) 02/21/18 14:50 VBG pH 7.507 (7.320-7.420) H 02/21/18 14:35 Sodium 137 mmol/L (137-145) 02/22/18 05:35 Potassium 3.1 mmol/L (3.6-5.0) L 02/22/18 05:35 Chloride 97.2 mmol/L (98-107) L 02/22/18 05:35 Carbon Dioxide 27 mmol/L (22-30) 02/22/18 05:35 Anion Gap 16 mmol/L 02/22/18 05:35 BUN 6 mg/dL (7-17) L 02/22/18 05:35 Creatinine 0.6 mg/dL (0.7-1.2) L 02/22/18 05:35 Estimated GFR > 60 ml/min 02/22/18 05:35 BUN/Creatinine Ratio 10 % 02/22/18 05:35 Glucose 205 mg/dL (65-100) H 02/22/18 05:35 POC Glucose 192 (70-105) H 02/22/18 11:41 Hemoglobin A1c 10.9 % (4-6) H 02/21/18 21:22 Lactic Acid 1.90 mmol/L (0.7-2.0) 02/21/18 17:15 Calcium 7.3 mg/dL (8.4-10.2) L 02/22/18 05:35 Total Bilirubin 0.30 mg/dL (0.1-1.2) 02/22/18 05:35 AST 31 units/L (5-40) 02/22/18 05:35 ALT 14 units/L (7-56) 02/22/18 05:35 Alkaline Phosphatase 56 units/L (35-129) 02/22/18 05:35 Total Protein 7.0 g/dL (6.3-8.2) 02/22/18 05:35 Albumin 3.0 g/dL (3.9-5) L 02/22/18 05:35 Albumin/Globulin Ratio 0.8 % 02/22/18 05:35 Urine Color Yellow (Yellow) 02/21/18 16:20 Urine Turbidity Clear (Clear) 02/21/18 16:20 Urine pH 6.0 (5.0-7.0) 02/21/18 16:20 Ur Specific [place] 1.009 (1.003-1.030) 02/21/18 16:20 Urine Protein 100 mg/dl mg/dL (Negative) 02/21/18 16:20 Urine Glucose (UA) Neg mg/dL (Negative) 02/21/18 16:20 Urine Ketones Neg mg/dL (Negative) 02/21/18 16:20 Urine Blood Mod (Negative) 02/21/18 16:20 Urine Nitrite Neg (Negative) 02/21/18 16:20 Urine Bilirubin Neg (Negative) 02/21/18 16:20 Urine Urobilinogen < 2.0 mg/dL (<2.0) 02/21/18 16:20 Ur Leukocyte Esterase Neg (Negative) 02/21/18 16:20 Urine WBC (Auto) 3.0 /HPF (0.0-6.0) 02/21/18 16:20 Urine RBC (Auto) 2.0 /HPF (0.0-6.0) 02/21/18 16:20 U Epithel Cells (Auto) 1.0 /HPF (0-13.0) 02/21/18 16:20 Urine Mucus Few /HPF 02/21/18 16:20 Influenza A (Rapid) Negative (Negative) 02/21/18 19:24 Influenza B (Rapid) Negative (Negative) 02/21/18 19:24
[2018-02-22] MEDS ORDERED: PROVENTIL IH PRN (20:46)
[2018-02-22] MEDS: LANTUS SUB-Q SCH (21:56)
[2018-02-22] MEDS: PERCOCET 5/325 PO PRN (22:13)
[2018-02-23] MEDS: NACL 0.9% 1000 ML 1,000 ML IV SCH (05:09)
[2018-02-23] MEDS: TYLENOL PO PRN (05:10)
[2018-02-23] MEDS: ROBITUSSIN AC PO PRN ×3 (05:26→18:42)
[2018-02-23] MEDS: DILAUDID IV PRN ×2 (05:27→11:51)
[2018-02-23] MEDS: HumaLOG SUB-Q SCH ×5 (08:09→23:09)
[2018-02-23 08:39] LABS: BUN/Creatinine Ratio 13; Blood Urea Nitrogen 8 mg/dL (7-17); Calcium 7.3 mg/dL (8.4-10.2); Hemolysis Index 4
[2018-02-23] MEDS: LOVENOX SUB-Q SCH (09:35)
[2018-02-23] MEDS: NORMODYNE PO SCH ×2 (09:35→21:31)
[2018-02-23] MEDS: PEPCID PO SCH ×2 (09:35→21:32)
[2018-02-23] MEDS: NORVASC PO SCH (09:35)
[2018-02-23] MEDS ORDERED: K-DUR PO NR (09:58)
[2018-02-23] MEDS: DUONEB *Not for PRN Use IH SCH ×4 (10:10→19:24)
[2018-02-23] MEDS: SODIUM CHLORIDE FLUSH SYRINGE 10 ML IV SCH ×2 (11:00→21:32)
[2018-02-23] MEDS: ROCEPHIN/NS 2 GM/100 ML 2 GM/100 ML BAG IV SCH (11:00)
[2018-02-23] MEDS: ZITHROMAX 500 MG in NACL 0.9% 250ML 250 ML IV SCH (11:06)
[2018-02-23] MEDS ORDERED: LASIX IV ONE (11:56)
[2018-02-23] MEDS ORDERED: AFLURIA QUAD 2018-2019 SYRINGE IM ONE (12:00)
--- NOTE | 2018-02-23 13:44 | Progress Note ---
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 -Acute hypoxic respiratory failure, on Vm 35%: treat the pneumonia, and daily o2 weaning attempts -Left Pneumonia with Sepsis, poa: treat with iv abx, ivf and follow cultures -Hypokalemia: replace and recheck -Asthma: nebs treatment -Morbid Obesity, bmi 51: counseling done -Type 2 DM, a1c 10.9: counseling done, add ssi and long acting insulin -MAAME: consult respiratory for cpap -DVT/GI prophylaxis reviewed History Interval history: Patient was seen and examined. Follow-up on current diagnosis of sob. Overnight uneventful. Patient denies any chest pain, nausea/vomiting or severe headaches. Imaging, nursing note, chart, labs and old chart reviewed. Discussed with patient. Hospitalist Physical - Physical exam Narrative exam: Gen: ill appearing, mild increase accessory muscles, Awake, Alert, Orientated x 3, bmi 51 HEENT: NCAT, EOMI, PERRL, OP Clear Neck: supple, no adenopathy, no thyromegaly, no JVD CVS/Heart: RRR, normal S1S2, pulses present bilaterally Chest/Lungs: diminished bs bilateral, coarse bs on the left, Symmetrical chest expansion, good air entry bilaterally GI/Abdomen: soft, NTND, good bowel sounds, no guarding or rebound /Bladder: no suprapubic tenderness, no CVA or paraspinal tenderness Extermity/Skin: no c/c/e, no obvious rash MSK: FROM x 4 Neuro: CN 2-12 grossly intact, no new focal deficits Psych: calm - Constitutional Vitals: Temp Pulse Resp BP Pulse Ox 98.4 F 90 24 113/62 91 02/23/18 11:27 02/23/18 11:27 02/23/18 11:27 02/23/18 11:27 02/23/18 11:27 General appearance: Present: mild distress, well-nourished Results - Labs CBC & Chem 7: 02/22/18 05:35 02/23/18 08:02 Labs: Laboratory Last Values WBC 4.6 K/mm3 (4.5-11.0) 02/22/18 05:35 RBC 4.13 M/mm3 (3.65-5.03) 02/22/18 05:35 Hgb 10.7 gm/dl (10.1-14.3) 02/22/18 05:35 Hct 32.8 % (30.3-42.9) 02/22/18 05:35 MCV 79 fl (79-97) 02/22/18 05:35 MCH 26 pg (28-32) L 02/22/18 05:35 MCHC 33 % (30-34) 02/22/18 05:35 RDW 16.2 % (13.2-15.2) H 02/22/18 05:35 Plt Count 231 K/mm3 (140-440) 02/22/18 05:35 Lymph % (Auto) 40.3 % (13.4-35.0) H 02/22/18 05:35 [place] % (Auto) 13.0 % (0.0-7.3) H 02/22/18 05:35 Eos % (Auto) 0.5 % (0.0-4.3) 02/22/18 05:35 Baso % (Auto) 0.4 % (0.0-1.8) 02/22/18 05:35 Lymph # 1.9 K/mm3 (1.2-5.4) 02/22/18 05:35 [place] # 0.6 K/mm3 (0.0-0.8) 02/22/18 05:35 Eos # 0.0 K/mm3 (0.0-0.4) 02/22/18 05:35 Baso # 0.0 K/mm3 (0.0-0.1) 02/22/18 05:35 Seg Neutrophils % 45.8 % (40.0-70.0) 02/22/18 05:35 Seg Neutrophils # 2.1 K/mm3 (1.8-7.7) 02/22/18 05:35 PT 13.3 Sec. (12.2-14.9) 02/21/18 14:50 INR 0.97 (0.87-1.13) 02/21/18 14:50 VBG pH 7.507 (7.320-7.420) H 02/21/18 14:35 Sodium 136 mmol/L (137-145) L 02/23/18 08:02 Potassium 3.1 mmol/L (3.6-5.0) L 02/23/18 08:02 Chloride 97.8 mmol/L (98-107) L 02/23/18 08:02 Carbon Dioxide 26 mmol/L (22-30) 02/23/18 08:02 Anion Gap 15 mmol/L 02/23/18 08:02 BUN 8 mg/dL (7-17) 02/23/18 08:02 Creatinine 0.6 mg/dL (0.7-1.2) L 02/23/18 08:02 Estimated GFR > 60 ml/min 02/23/18 08:02 BUN/Creatinine Ratio 13 % 02/23/18 08:02 Glucose 175 mg/dL (65-100) H 02/23/18 08:02 POC Glucose 156 (70-105) H 02/23/18 11:28 Hemoglobin A1c 10.9 % (4-6) H 02/21/18 21:22 Lactic Acid 1.90 mmol/L (0.7-2.0) 02/21/18 17:15 Calcium 7.3 mg/dL (8.4-10.2) L 02/23/18 08:02 Total Bilirubin 0.30 mg/dL (0.1-1.2) 02/22/18 05:35 AST 31 units/L (5-40) 02/22/18 05:35 ALT 14 units/L (7-56) 02/22/18 05:35 Alkaline Phosphatase 56 units/L (35-129) 02/22/18 05:35 Total Protein 7.0 g/dL (6.3-8.2) 02/22/18 05:35 Albumin 3.0 g/dL (3.9-5) L 02/22/18 05:35 Albumin/Globulin Ratio 0.8 % 02/22/18 05:35 Urine Color Yellow (Yellow) 02/21/18 16:20 Urine Turbidity Clear (Clear) 02/21/18 16:20 Urine pH 6.0 (5.0-7.0) 02/21/18 16:20 Ur Specific [place] 1.009 (1.003-1.030) 02/21/18 16:20 Urine Protein 100 mg/dl mg/dL (Negative) 02/21/18 16:20 Urine Glucose (UA) Neg mg/dL (Negative) 02/21/18 16:20 Urine Ketones Neg mg/dL (Negative) 02/21/18 16:20 Urine Blood Mod (Negative) 02/21/18 16:20 Urine Nitrite Neg (Negative) 02/21/18 16:20 Urine Bilirubin Neg (Negative) 02/21/18 16:20 Urine Urobilinogen < 2.0 mg/dL (<2.0) 02/21/18 16:20 Ur Leukocyte Esterase Neg (Negative) 02/21/18 16:20 Urine WBC (Auto) 3.0 /HPF (0.0-6.0) 02/21/18 16:20 Urine RBC (Auto) 2.0 /HPF (0.0-6.0) 02/21/18 16:20 U Epithel Cells (Auto) 1.0 /HPF (0-13.0) 02/21/18 16:20 Urine Mucus Few /HPF 02/21/18 16:20 Influenza A (Rapid) Negative (Negative) 02/21/18 19:24 Influenza B (Rapid) Negative (Negative) 02/21/18 19:24
[2018-02-23] MEDS: TESSALON PERLES PO SCH ×2 (14:45→21:31)
[2018-02-23] MEDS: PERCOCET 5/325 PO PRN (17:08)
[2018-02-23] MEDS: LANTUS SUB-Q SCH (23:08)
[2018-02-24] MEDS: ZOFRAN IV PRN (05:00)
[2018-02-24] MEDS: TESSALON PERLES PO SCH ×3 (05:00→22:05)
[2018-02-24] MEDS: DILAUDID IV PRN ×3 (05:01→22:06)
[2018-02-24 05:06] LABS: Hemoglobin 10.2 gm/dl (10.1-14.3); Mean Corpuscular HGB Conc 33 % (30-34); Mean Corpuscular Volume 80 fl (79-97); Platelet Count 221 K/mm3 (140-440); Red Blood Count 3.89 M/mm3 (3.65-5.03); Red Cell Distribution Width 16.2 % (13.2-15.2)
[2018-02-24 05:30] LABS: BUN/Creatinine Ratio 8; Blood Urea Nitrogen 5 mg/dL (7-17); Calcium 7.9 mg/dL (8.4-10.2); Hemolysis Index 14
[2018-02-24] MEDS: TYLENOL PO PRN (06:20)
[2018-02-24] MEDS: HumaLOG SUB-Q SCH ×4 (08:31→22:16)
[2018-02-24] MEDS: DUONEB *Not for PRN Use IH SCH ×4 (09:30→19:15)
[2018-02-24] MEDS ORDERED: MAGNESIUM SULFATE 2GM/50ML 2 GM/50 ML BAG IV ONE (10:00)
[2018-02-24] MEDS: LOVENOX SUB-Q SCH (10:30)
[2018-02-24] MEDS: ROCEPHIN/NS 2 GM/100 ML 2 GM/100 ML BAG IV SCH (10:30)
[2018-02-24] MEDS: NORMODYNE PO SCH ×2 (10:31→22:05)
[2018-02-24] MEDS: PEPCID PO SCH ×2 (10:31→22:05)
[2018-02-24] MEDS: NORVASC PO SCH (10:31)
[2018-02-24] MEDS: SODIUM CHLORIDE FLUSH SYRINGE 10 ML IV SCH ×2 (10:32→22:09)
[2018-02-24] MEDS: ZITHROMAX 500 MG in NACL 0.9% 250ML 250 ML IV SCH (10:33)
[2018-02-24] MEDS ORDERED: K-DUR PO ONE (13:00)
--- NOTE | 2018-02-24 16:57 | Progress Note ---
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 -Acute hypoxic respiratory failure, still requiring O2: treat the pneumonia, and daily o2 weaning attempts -Left Pneumonia with Sepsis, poa: treat with iv abx, ivf and follow cultures -Hypokalemia: replace and recheck -Asthma: nebs treatment -Morbid Obesity, bmi 51: counseling done -Type 2 DM, a1c 10.9: counseling done, add ssi and long acting insulin -MAAME: consult respiratory for cpap -DVT/GI prophylaxis reviewed still on O2 but down to 4 liters now, does not use the bedside bipap, pt unable to afford home o2 History Interval history: Patient was seen and examined. Follow-up on current diagnosis of sob. Overnight uneventful. Patient denies any chest pain, nausea/vomiting or severe headaches. Imaging, nursing note, chart, labs and old chart reviewed. Discussed with patient. Hospitalist Physical - Physical exam Narrative exam: Gen: ill appearing, mild increase accessory muscles, Awake, Alert, Orientated x 3, bmi 51 HEENT: NCAT, EOMI, PERRL, OP Clear Neck: supple, no adenopathy, no thyromegaly, no JVD CVS/Heart: RRR, normal S1S2, pulses present bilaterally Chest/Lungs: diminished bs bilateral, coarse bs on the left, Symmetrical chest expansion, good air entry bilaterally GI/Abdomen: soft, NTND, good bowel sounds, no guarding or rebound /Bladder: no suprapubic tenderness, no CVA or paraspinal tenderness Extermity/Skin: no c/c/e, no obvious rash MSK: FROM x 4 Neuro: CN 2-12 grossly intact, no new focal deficits Psych: calm - Constitutional Vitals: Temp Pulse Resp BP Pulse Ox 97.5 F L 82 15 133/81 85 02/24/18 11:31 02/24/18 15:40 02/24/18 15:40 02/24/18 11:31 02/24/18 11:31 General appearance: Present: mild distress, well-nourished Results - Labs CBC & Chem 7: 01/04/19 04:30 02/24/18 04:30 Labs: Laboratory Last Values WBC 5.7 K/mm3 (4.5-11.0) 02/24/18 04:30 RBC 3.89 M/mm3 (3.65-5.03) 02/24/18 04:30 Hgb 10.2 gm/dl (10.1-14.3) 02/24/18 04:30 Hct 31.0 % (30.3-42.9) 02/24/18 04:30 MCV 80 fl (79-97) 02/24/18 04:30 MCH 26 pg (28-32) L 02/24/18 04:30 MCHC 33 % (30-34) 02/24/18 04:30 RDW 16.2 % (13.2-15.2) H 02/24/18 04:30 Plt Count 221 K/mm3 (140-440) 02/24/18 04:30 Lymph % (Auto) 40.3 % (13.4-35.0) H 02/22/18 05:35 [place] % (Auto) 13.0 % (0.0-7.3) H 02/22/18 05:35 Eos % (Auto) 0.5 % (0.0-4.3) 02/22/18 05:35 Baso % (Auto) 0.4 % (0.0-1.8) 02/22/18 05:35 Lymph # 1.9 K/mm3 (1.2-5.4) 02/22/18 05:35 [place] # 0.6 K/mm3 (0.0-0.8) 02/22/18 05:35 Eos # 0.0 K/mm3 (0.0-0.4) 02/22/18 05:35 Baso # 0.0 K/mm3 (0.0-0.1) 02/22/18 05:35 Seg Neutrophils % 45.8 % (40.0-70.0) 02/22/18 05:35 Seg Neutrophils # 2.1 K/mm3 (1.8-7.7) 02/22/18 05:35 PT 13.3 Sec. (12.2-14.9) 02/21/18 14:50 INR 0.97 (0.87-1.13) 02/21/18 14:50 VBG pH 7.507 (7.320-7.420) H 02/21/18 14:35 Sodium 140 mmol/L (137-145) 02/24/18 04:30 Potassium 3.2 mmol/L (3.6-5.0) L 02/24/18 04:30 Chloride 96.5 mmol/L (98-107) L 02/24/18 04:30 Carbon Dioxide 30 mmol/L (22-30) 02/24/18 04:30 Anion Gap 17 mmol/L 02/24/18 04:30 BUN 5 mg/dL (7-17) L 02/24/18 04:30 Creatinine 0.6 mg/dL (0.7-1.2) L 02/24/18 04:30 Estimated GFR > 60 ml/min 02/24/18 04:30 BUN/Creatinine Ratio 8 % 02/24/18 04:30 Glucose 142 mg/dL (65-100) H 02/24/18 04:30 POC Glucose 168 (70-105) H 02/24/18 11:35 Hemoglobin A1c 10.9 % (4-6) H 02/21/18 21:22 Lactic Acid 1.90 mmol/L (0.7-2.0) 02/21/18 17:15 Calcium 7.9 mg/dL (8.4-10.2) L 02/24/18 04:30 Magnesium 1.50 mg/dL (1.7-2.3) L 02/24/18 04:30 Total Bilirubin 0.30 mg/dL (0.1-1.2) 02/22/18 05:35 AST 31 units/L (5-40) 02/22/18 05:35 ALT 14 units/L (7-56) 02/22/18 05:35 Alkaline Phosphatase 56 units/L (35-129) 02/22/18 05:35 Total Protein 7.0 g/dL (6.3-8.2) 02/22/18 05:35 Albumin 3.0 g/dL (3.9-5) L 02/22/18 05:35 Albumin/Globulin Ratio 0.8 % 02/22/18 05:35 Urine Color Yellow (Yellow) 01/01/19 16:20 Urine Turbidity Clear (Clear) 02/21/18 16:20 Urine pH 6.0 (5.0-7.0) 02/21/18 16:20 Ur Specific [place] 1.009 (1.003-1.030) 02/21/18 16:20 Urine Protein 100 mg/dl mg/dL (Negative) 02/21/18 16:20 Urine Glucose (UA) Neg mg/dL (Negative) 02/21/18 16:20 Urine Ketones Neg mg/dL (Negative) 02/21/18 16:20 Urine Blood Mod (Negative) 02/21/18 16:20 Urine Nitrite Neg (Negative) 02/21/18 16:20 Urine Bilirubin Neg (Negative) 02/21/18 16:20 Urine Urobilinogen < 2.0 mg/dL (<2.0) 02/21/18 16:20 Ur Leukocyte Esterase Neg (Negative) 02/21/18 16:20 Urine WBC (Auto) 3.0 /HPF (0.0-6.0) 02/21/18 16:20 Urine RBC (Auto) 2.0 /HPF (0.0-6.0) 02/21/18 16:20 U Epithel Cells (Auto) 1.0 /HPF (0-13.0) 02/21/18 16:20 Urine Mucus Few /HPF 02/21/18 16:20 Influenza A (Rapid) Negative (Negative) 02/21/18 19:24 Influenza B (Rapid) Negative (Negative) 02/21/18 19:24
[2018-02-24] MEDS: ROBITUSSIN AC PO PRN (17:00)
[2018-02-24] MEDS: LANTUS SUB-Q SCH (22:15)
[2018-02-25 06:08] LABS: BUN/Creatinine Ratio 8; Blood Urea Nitrogen 4 mg/dL (7-17); Calcium 7.8 mg/dL (8.4-10.2); Hemolysis Index 0
[2018-02-25] MEDS: TESSALON PERLES PO SCH ×3 (06:31→22:03)
[2018-02-25] MEDS: DUONEB *Not for PRN Use IH SCH ×5 (07:52→20:50)
[2018-02-25] MEDS: HumaLOG SUB-Q SCH ×4 (09:30→22:24)
[2018-02-25] MEDS: ROBITUSSIN AC PO PRN (09:35)
[2018-02-25] MEDS: NORVASC PO SCH (09:36)
[2018-02-25] MEDS: NORMODYNE PO SCH ×2 (09:36→22:06)
[2018-02-25] MEDS: PEPCID PO SCH ×2 (09:36→22:03)
[2018-02-25] MEDS: SODIUM CHLORIDE FLUSH SYRINGE 10 ML IV SCH ×2 (09:36→22:06)
[2018-02-25] MEDS: LOVENOX SUB-Q SCH (09:36)
[2018-02-25] MEDS: DILAUDID IV PRN ×3 (09:38→22:17)
[2018-02-25] MEDS: ROCEPHIN/NS 2 GM/100 ML 2 GM/100 ML BAG IV SCH (09:42)
[2018-02-25] MEDS: ZITHROMAX 500 MG in NACL 0.9% 250ML 250 ML IV SCH (09:42)
[2018-02-25] MEDS: ZOFRAN IV PRN ×2 (14:37→18:02)
[2018-02-25] MEDS ORDERED: K-DUR PO ONE ×2 (15:41→21:00)
--- NOTE | 2018-02-25 15:45 | Progress Note ---
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 -Acute hypoxic respiratory failure, still requiring O2: treat the pneumonia with daily o2 weaning attempts -Left Pneumonia with Sepsis, poa: treat with iv abx, ivf and follow cultures -Hypokalemia: replace and recheck -Asthma, MAAME suspect: nebs treatment, may benefit from steroids, will consult Pulmonology -Morbid Obesity, bmi 53.6: counseling done -Type 2 DM, a1c 10.9: counseling done, added ssi and long acting insulin -MAAME: consult respiratory for cpap -DVT/GI prophylaxis reviewed Patient pulse ox dropped down to 85% on RA while walking. She is Not progressing as well as i would like, so i ordered 2v cxr and consulted Pulmonology. Start IV steroids, except hyperglycemia and uncontrolled DM. History Interval history: Patient was seen and examined. Follow-up on current diagnosis of sob. Overnight uneventful. Patient denies any chest pain, nausea/vomiting or severe headaches. Imaging, nursing note, chart, labs and old chart reviewed. Discussed with patient. Hospitalist Physical - Physical exam Narrative exam: Gen: ill appearing, mild increase accessory muscles, Awake, Alert, Orientated x 3, bmi 51 HEENT: NCAT, EOMI, PERRL, OP Clear Neck: supple, no adenopathy, no thyromegaly, no JVD CVS/Heart: RRR, normal S1S2, pulses present bilaterally Chest/Lungs: diminished bs bilateral, coarse bs on the left, Symmetrical chest expansion, good air entry bilaterally GI/Abdomen: soft, NTND, good bowel sounds, no guarding or rebound /Bladder: no suprapubic tenderness, no CVA or paraspinal tenderness Extermity/Skin: no c/c/e, no obvious rash MSK: FROM x 4 Neuro: CN 2-12 grossly intact, no new focal deficits Psych: calm - Constitutional Vitals: Temp Pulse Resp BP Pulse Ox 98.6 F 96 H 20 171/112 94 02/25/18 06:13 02/25/18 14:39 02/25/18 14:39 02/25/18 06:13 02/25/18 11:00 General appearance: Present: mild distress, well-nourished Results - Labs CBC & Chem 7: 02/24/18 04:30 02/25/18 05:24 Labs: Laboratory Last Values WBC 5.7 K/mm3 (4.5-11.0) 02/24/18 04:30 RBC 3.89 M/mm3 (3.65-5.03) 02/24/18 04:30 Hgb 10.2 gm/dl (10.1-14.3) 02/24/18 04:30 Hct 31.0 % (30.3-42.9) 02/24/18 04:30 MCV 80 fl (79-97) 02/24/18 04:30 MCH 26 pg (28-32) L 02/24/18 04:30 MCHC 33 % (30-34) 02/24/18 04:30 RDW 16.2 % (13.2-15.2) H 02/24/18 04:30 Plt Count 221 K/mm3 (140-440) 02/24/18 04:30 Lymph % (Auto) 40.3 % (13.4-35.0) H 02/22/18 05:35 [place] % (Auto) 13.0 % (0.0-7.3) H 02/22/18 05:35 Eos % (Auto) 0.5 % (0.0-4.3) 02/22/18 05:35 Baso % (Auto) 0.4 % (0.0-1.8) 02/22/18 05:35 Lymph # 1.9 K/mm3 (1.2-5.4) 02/22/18 05:35 [place] # 0.6 K/mm3 (0.0-0.8) 02/22/18 05:35 Eos # 0.0 K/mm3 (0.0-0.4) 02/22/18 05:35 Baso # 0.0 K/mm3 (0.0-0.1) 02/22/18 05:35 Seg Neutrophils % 45.8 % (40.0-70.0) 02/22/18 05:35 Seg Neutrophils # 2.1 K/mm3 (1.8-7.7) 02/22/18 05:35 PT 13.3 Sec. (12.2-14.9) 02/21/18 14:50 INR 0.97 (0.87-1.13) 02/21/18 14:50 VBG pH 7.507 (7.320-7.420) H 02/21/18 14:35 Sodium 136 mmol/L (137-145) L 02/25/18 05:24 Potassium 3.1 mmol/L (3.6-5.0) L 02/25/18 05:24 Chloride 94.6 mmol/L (98-107) L 02/25/18 05:24 Carbon Dioxide 31 mmol/L (22-30) H 02/25/18 05:24 Anion Gap 14 mmol/L 02/25/18 05:24 BUN 4 mg/dL (7-17) L 02/25/18 05:24 Creatinine 0.5 mg/dL (0.7-1.2) L 02/25/18 05:24 Estimated GFR > 60 ml/min 02/25/18 05:24 BUN/Creatinine Ratio 8 % 02/25/18 05:24 Glucose 136 mg/dL (65-100) H 02/25/18 05:24 POC Glucose 143 (70-105) H 02/25/18 12:14 Hemoglobin A1c 10.9 % (4-6) H 02/21/18 21:22 Lactic Acid 1.90 mmol/L (0.7-2.0) 02/21/18 17:15 Calcium 7.8 mg/dL (8.4-10.2) L 02/25/18 05:24 Magnesium 1.70 mg/dL (1.7-2.3) 02/25/18 05:24 Total Bilirubin 0.30 mg/dL (0.1-1.2) 02/22/18 05:35 AST 31 units/L (5-40) 02/22/18 05:35 ALT 14 units/L (7-56) 02/22/18 05:35 Alkaline Phosphatase 56 units/L (35-129) 02/22/18 05:35 Total Protein 7.0 g/dL (6.3-8.2) 02/22/18 05:35 Albumin 3.0 g/dL (3.9-5) L 02/22/18 05:35 Albumin/Globulin Ratio 0.8 % 02/22/18 05:35 Urine Color Yellow (Yellow) 02/21/18 16:20 Urine Turbidity Clear (Clear) 02/21/18 16:20 Urine pH 6.0 (5.0-7.0) 02/21/18 16:20 Ur Specific [place] 1.009 (1.003-1.030) 02/21/18 16:20 Urine Protein 100 mg/dl mg/dL (Negative) 02/21/18 16:20 Urine Glucose (UA) Neg mg/dL (Negative) 02/21/18 16:20 Urine Ketones Neg mg/dL (Negative) 02/21/18 16:20 Urine Blood Mod (Negative) 02/21/18 16:20 Urine Nitrite Neg (Negative) 02/21/18 16:20 Urine Bilirubin Neg (Negative) 02/21/18 16:20 Urine Urobilinogen < 2.0 mg/dL (<2.0) 02/21/18 16:20 Ur Leukocyte Esterase Neg (Negative) 02/21/18 16:20 Urine WBC (Auto) 3.0 /HPF (0.0-6.0) 02/21/18 16:20 Urine RBC (Auto) 2.0 /HPF (0.0-6.0) 02/21/18 16:20 U Epithel Cells (Auto) 1.0 /HPF (0-13.0) 02/21/18 16:20 Urine Mucus Few /HPF 02/21/18 16:20 Influenza A (Rapid) Negative (Negative) 02/21/18 19:24 Influenza B (Rapid) Negative (Negative) 02/21/18 19:24
--- NOTE | 2018-02-25 17:02 | XRay Report ---
FINAL REPORT EXAM: XR CHEST ROUTINE 2V HISTORY: sob TECHNIQUE: PA and lateral views of the chest Comparison: Chest x-ray dated February 21, 2018 FINDINGS: There has been interval development of pulmonary consolidation in both lung bases and right midlung f ield with persistent evidence of pulmonary consolidation in the left midlung. There is no evidence of pneumothorax or pleural fluid collection. The cardiac silhouette is enlarged. The thoracic aorta and bony structures are unremarkable. IMPRESSION: 1. Progressive bilateral airspace process. 2. Enlarged cardiac silhouette.
[2018-02-25] MEDS: TYLENOL PO PRN (18:13)
[2018-02-25] MEDS: SOLU-Medrol IV SCH ×2 (19:08→22:04)
[2018-02-25] MEDS: LANTUS SUB-Q SCH (22:22)
[2018-02-26] MEDS: TESSALON PERLES PO SCH ×3 (07:31→22:01)
[2018-02-26] MEDS: SOLU-Medrol IV SCH ×3 (07:31→22:01)
[2018-02-26] MEDS: DILAUDID IV PRN ×3 (07:32→22:23)
[2018-02-26] MEDS: DUONEB *Not for PRN Use IH SCH ×3 (07:52→21:36)
[2018-02-26] MEDS: HumaLOG SUB-Q SCH ×4 (09:47→22:03)
[2018-02-26] MEDS: LOVENOX SUB-Q SCH (09:48)
[2018-02-26] MEDS: NORMODYNE PO SCH ×2 (09:48→22:01)
[2018-02-26] MEDS: NORVASC PO SCH (09:48)
[2018-02-26] MEDS: PEPCID PO SCH ×2 (09:48→22:01)
[2018-02-26] MEDS: ROCEPHIN/NS 2 GM/100 ML 2 GM/100 ML BAG IV SCH (11:38)
[2018-02-26] MEDS: SODIUM CHLORIDE FLUSH SYRINGE 10 ML IV SCH ×2 (11:38→22:02)
[2018-02-26] MEDS: ROBITUSSIN AC PO PRN (11:38)
--- NOTE | 2018-02-26 14:47 | Progress Note ---
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 -Acute hypoxic respiratory failure, still requiring O2: treat the pneumonia with daily o2 weaning attempts -Left Pneumonia with Sepsis, poa: treat with iv abx, ivf and follow cultures -Hypokalemia: replace and recheck -Asthma, MAAME suspect: nebs treatment, may benefit from steroids, will consult Pulmonology -Morbid Obesity, bmi 53.6: counseling done -Type 2 DM, a1c 10.9: counseling done, added ssi and long acting insulin -MAAME: consult respiratory for cpap -DVT/GI prophylaxis reviewed Dispos: continue inpatient care, d/c once off o2, patient has no insurance or funds to afford home o2 Down to 1 liter of O2 History Interval history: Patient was seen and examined. Follow-up on current diagnosis of sob. Overnight uneventful. Patient denies any chest pain, nausea/vomiting or severe headaches. Imaging, nursing note, chart, labs and old chart reviewed. Discussed with patient. Hospitalist Physical - Physical exam Narrative exam: Gen: ill appearing, mild increase accessory muscles, Awake, Alert, Orientated x 3, bmi 51 HEENT: NCAT, EOMI, PERRL, OP Clear Neck: supple, no adenopathy, no thyromegaly, no JVD CVS/Heart: RRR, normal S1S2, pulses present bilaterally Chest/Lungs: diminished bs bilateral, coarse bs on the left, Symmetrical chest expansion, good air entry bilaterally GI/Abdomen: soft, NTND, good bowel sounds, no guarding or rebound /Bladder: no suprapubic tenderness, no CVA or paraspinal tenderness Extermity/Skin: no c/c/e, no obvious rash MSK: FROM x 4 Neuro: CN 2-12 grossly intact, no new focal deficits Psych: calm - Constitutional Vitals: Temp Pulse Resp BP Pulse Ox 97.8 F 101 H 17 124/70 95 02/26/18 11:51 02/26/18 13:59 02/26/18 13:59 02/26/18 11:51 02/26/18 11:51 General appearance: Present: mild distress, well-nourished Results - Labs CBC & Chem 7: 02/24/18 04:30 02/25/18 05:24 Labs: Laboratory Last Values WBC 5.7 K/mm3 (4.5-11.0) 02/24/18 04:30 RBC 3.89 M/mm3 (3.65-5.03) 02/24/18 04:30 Hgb 10.2 gm/dl (10.1-14.3) 02/24/18 04:30 Hct 31.0 % (30.3-42.9) 02/24/18 04:30 MCV 80 fl (79-97) 02/24/18 04:30 MCH 26 pg (28-32) L 02/24/18 04:30 MCHC 33 % (30-34) 02/24/18 04:30 RDW 16.2 % (13.2-15.2) H 02/24/18 04:30 Plt Count 221 K/mm3 (140-440) 02/24/18 04:30 Lymph % (Auto) 40.3 % (13.4-35.0) H 02/22/18 05:35 [place] % (Auto) 13.0 % (0.0-7.3) H 02/22/18 05:35 Eos % (Auto) 0.5 % (0.0-4.3) 02/22/18 05:35 Baso % (Auto) 0.4 % (0.0-1.8) 02/22/18 05:35 Lymph # 1.9 K/mm3 (1.2-5.4) 02/22/18 05:35 [place] # 0.6 K/mm3 (0.0-0.8) 02/22/18 05:35 Eos # 0.0 K/mm3 (0.0-0.4) 02/22/18 05:35 Baso # 0.0 K/mm3 (0.0-0.1) 02/22/18 05:35 Seg Neutrophils % 45.8 % (40.0-70.0) 02/22/18 05:35 Seg Neutrophils # 2.1 K/mm3 (1.8-7.7) 02/22/18 05:35 PT 13.3 Sec. (12.2-14.9) 02/21/18 14:50 INR 0.97 (0.87-1.13) 02/21/18 14:50 VBG pH 7.507 (7.320-7.420) H 02/21/18 14:35 Sodium 136 mmol/L (137-145) L 02/25/18 05:24 Potassium 3.1 mmol/L (3.6-5.0) L 02/25/18 05:24 Chloride 94.6 mmol/L (98-107) L 02/25/18 05:24 Carbon Dioxide 31 mmol/L (22-30) H 02/25/18 05:24 Anion Gap 14 mmol/L 02/25/18 05:24 BUN 4 mg/dL (7-17) L 02/25/18 05:24 Creatinine 0.5 mg/dL (0.7-1.2) L 02/25/18 05:24 Estimated GFR > 60 ml/min 02/25/18 05:24 BUN/Creatinine Ratio 8 % 02/25/18 05:24 Glucose 136 mg/dL (65-100) H 02/25/18 05:24 POC Glucose 216 (70-105) H 02/26/18 11:55 Hemoglobin A1c 10.9 % (4-6) H 02/21/18 21:22 Lactic Acid 1.90 mmol/L (0.7-2.0) 02/21/18 17:15 Calcium 7.8 mg/dL (8.4-10.2) L 02/25/18 05:24 Magnesium 1.70 mg/dL (1.7-2.3) 02/25/18 05:24 Total Bilirubin 0.30 mg/dL (0.1-1.2) 02/22/18 05:35 AST 31 units/L (5-40) 02/22/18 05:35 ALT 14 units/L (7-56) 02/22/18 05:35 Alkaline Phosphatase 56 units/L (35-129) 02/22/18 05:35 Total Protein 7.0 g/dL (6.3-8.2) 02/22/18 05:35 Albumin 3.0 g/dL (3.9-5) L 02/22/18 05:35 Albumin/Globulin Ratio 0.8 % 02/22/18 05:35 Urine Color Yellow (Yellow) 02/21/18 16:20 Urine Turbidity Clear (Clear) 02/21/18 16:20 Urine pH 6.0 (5.0-7.0) 02/21/18 16:20 Ur Specific [place] 1.009 (1.003-1.030) 02/21/18 16:20 Urine Protein 100 mg/dl mg/dL (Negative) 02/21/18 16:20 Urine Glucose (UA) Neg mg/dL (Negative) 02/21/18 16:20 Urine Ketones Neg mg/dL (Negative) 02/21/18 16:20 Urine Blood Mod (Negative) 02/21/18 16:20 Urine Nitrite Neg (Negative) 02/21/18 16:20 Urine Bilirubin Neg (Negative) 02/21/18 16:20 Urine Urobilinogen < 2.0 mg/dL (<2.0) 02/21/18 16:20 Ur Leukocyte Esterase Neg (Negative) 02/21/18 16:20 Urine WBC (Auto) 3.0 /HPF (0.0-6.0) 02/21/18 16:20 Urine RBC (Auto) 2.0 /HPF (0.0-6.0) 02/21/18 16:20 U Epithel Cells (Auto) 1.0 /HPF (0-13.0) 02/21/18 16:20 Urine Mucus Few /HPF 02/21/18 16:20 Influenza A (Rapid) Negative (Negative) 02/21/18 19:24 Influenza B (Rapid) Negative (Negative) 02/21/18 19:24
[2018-02-26] MEDS: TYLENOL PO PRN (17:56)
[2018-02-26] MEDS: LANTUS SUB-Q SCH (22:02)
[2018-02-27] MEDS: PERCOCET 5/325 PO PRN (04:44)
[2018-02-27] MEDS: ROBITUSSIN AC PO PRN (04:45)
[2018-02-27] MEDS: TESSALON PERLES PO SCH ×3 (06:42→21:50)
[2018-02-27] MEDS: SOLU-Medrol IV SCH ×3 (06:42→21:52)
--- NOTE | 2018-02-27 07:20 | Progress Note ---
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 -Acute hypoxic respiratory failure, still requiring O2: treat the pneumonia with daily o2 weaning attempts -Left Pneumonia with Sepsis, poa: treat with iv abx, ivf and follow cultures -Hypokalemia: replace and recheck -Asthma, MAAME suspect: nebs treatment, may benefit from steroids, will consult Pulmonology -Morbid Obesity, bmi 53.6: counseling done -Type 2 DM, a1c 10.9: counseling done, added ssi and long acting insulin -MAAME: consult respiratory for cpap -DVT/GI prophylaxis reviewed Dispos: continue inpatient care, d/c once off o2, patient has no insurance or funds to afford home o2 Down to 1 liter of O2==> 6 min walk on Tuesday on RA, sat dropped to 87%, test aborted, o2 resume, will try again today History Interval history: Patient was seen and examined. Follow-up on current diagnosis of sob. Overnight uneventful. Patient denies any chest pain, nausea/vomiting or severe headaches. Imaging, nursing note, chart, labs and old chart reviewed. Discussed with patient. Hospitalist Physical - Physical exam Narrative exam: Gen: ill appearing, mild increase accessory muscles, Awake, Alert, Orientated x 3, bmi 51 HEENT: NCAT, EOMI, PERRL, OP Clear Neck: supple, no adenopathy, no thyromegaly, no JVD CVS/Heart: RRR, normal S1S2, pulses present bilaterally Chest/Lungs: diminished bs bilateral, coarse bs on the left, Symmetrical chest expansion, good air entry bilaterally GI/Abdomen: soft, NTND, good bowel sounds, no guarding or rebound /Bladder: no suprapubic tenderness, no CVA or paraspinal tenderness Extermity/Skin: no c/c/e, no obvious rash MSK: FROM x 4 Neuro: CN 2-12 grossly intact, no new focal deficits Psych: calm - Constitutional Vitals: Temp Pulse Resp BP Pulse Ox 97.9 F 74 18 137/88 96 02/27/18 04:40 02/27/18 04:40 02/27/18 04:40 02/27/18 04:40 02/27/18 04:40 General appearance: Present: well-nourished. Absent: mild distress Results - Labs CBC & Chem 7: 02/24/18 04:30 02/25/18 05:24 Labs: Laboratory Last Values WBC 5.7 K/mm3 (4.5-11.0) 02/24/18 04:30 RBC 3.89 M/mm3 (3.65-5.03) 02/24/18 04:30 Hgb 10.2 gm/dl (10.1-14.3) 02/24/18 04:30 Hct 31.0 % (30.3-42.9) 02/24/18 04:30 MCV 80 fl (79-97) 02/24/18 04:30 MCH 26 pg (28-32) L 02/24/18 04:30 MCHC 33 % (30-34) 02/24/18 04:30 RDW 16.2 % (13.2-15.2) H 02/24/18 04:30 Plt Count 221 K/mm3 (140-440) 02/24/18 04:30 Lymph % (Auto) 40.3 % (13.4-35.0) H 02/22/18 05:35 [place] % (Auto) 13.0 % (0.0-7.3) H 02/22/18 05:35 Eos % (Auto) 0.5 % (0.0-4.3) 02/22/18 05:35 Baso % (Auto) 0.4 % (0.0-1.8) 02/22/18 05:35 Lymph # 1.9 K/mm3 (1.2-5.4) 02/22/18 05:35 [place] # 0.6 K/mm3 (0.0-0.8) 02/22/18 05:35 Eos # 0.0 K/mm3 (0.0-0.4) 02/22/18 05:35 Baso # 0.0 K/mm3 (0.0-0.1) 02/22/18 05:35 Seg Neutrophils % 45.8 % (40.0-70.0) 02/22/18 05:35 Seg Neutrophils # 2.1 K/mm3 (1.8-7.7) 02/22/18 05:35 PT 13.3 Sec. (12.2-14.9) 02/21/18 14:50 INR 0.97 (0.87-1.13) 02/21/18 14:50 VBG pH 7.507 (7.320-7.420) H 02/21/18 14:35 Sodium 136 mmol/L (137-145) L 02/25/18 05:24 Potassium 3.1 mmol/L (3.6-5.0) L 02/25/18 05:24 Chloride 94.6 mmol/L (98-107) L 02/25/18 05:24 Carbon Dioxide 31 mmol/L (22-30) H 02/25/18 05:24 Anion Gap 14 mmol/L 02/25/18 05:24 BUN 4 mg/dL (7-17) L 02/25/18 05:24 Creatinine 0.5 mg/dL (0.7-1.2) L 02/25/18 05:24 Estimated GFR > 60 ml/min 02/25/18 05:24 BUN/Creatinine Ratio 8 % 02/25/18 05:24 Glucose 136 mg/dL (65-100) H 02/25/18 05:24 POC Glucose 257 (70-105) H 02/26/18 20:46 Hemoglobin A1c 10.9 % (4-6) H 02/21/18 21:22 Lactic Acid 1.90 mmol/L (0.7-2.0) 02/21/18 17:15 Calcium 7.8 mg/dL (8.4-10.2) L 02/25/18 05:24 Magnesium 1.70 mg/dL (1.7-2.3) 02/25/18 05:24 Total Bilirubin 0.30 mg/dL (0.1-1.2) 02/22/18 05:35 AST 31 units/L (5-40) 02/22/18 05:35 ALT 14 units/L (7-56) 02/22/18 05:35 Alkaline Phosphatase 56 units/L (35-129) 02/22/18 05:35 Total Protein 7.0 g/dL (6.3-8.2) 02/22/18 05:35 Albumin 3.0 g/dL (3.9-5) L 02/22/18 05:35 Albumin/Globulin Ratio 0.8 % 02/22/18 05:35 Urine Color Yellow (Yellow) 02/21/18 16:20 Urine Turbidity Clear (Clear) 02/21/18 16:20 Urine pH 6.0 (5.0-7.0) 02/21/18 16:20 Ur Specific [place] 1.009 (1.003-1.030) 02/21/18 16:20 Urine Protein 100 mg/dl mg/dL (Negative) 02/21/18 16:20 Urine Glucose (UA) Neg mg/dL (Negative) 02/21/18 16:20 Urine Ketones Neg mg/dL (Negative) 02/21/18 16:20 Urine Blood Mod (Negative) 02/21/18 16:20 Urine Nitrite Neg (Negative) 02/21/18 16:20 Urine Bilirubin Neg (Negative) 02/21/18 16:20 Urine Urobilinogen < 2.0 mg/dL (<2.0) 02/21/18 16:20 Ur Leukocyte Esterase Neg (Negative) 02/21/18 16:20 Urine WBC (Auto) 3.0 /HPF (0.0-6.0) 02/21/18 16:20 Urine RBC (Auto) 2.0 /HPF (0.0-6.0) 02/21/18 16:20 U Epithel Cells (Auto) 1.0 /HPF (0-13.0) 02/21/18 16:20 Urine Mucus Few /HPF 02/21/18 16:20 Influenza A (Rapid) Negative (Negative) 02/21/18 19:24 Influenza B (Rapid) Negative (Negative) 02/21/18 19:24
[2018-02-27] MEDS: HumaLOG SUB-Q SCH ×4 (08:42→22:06)
[2018-02-27] MEDS: DUONEB *Not for PRN Use IH SCH ×3 (09:01→20:08)
[2018-02-27] MEDS: PEPCID PO SCH ×2 (09:46→21:50)
[2018-02-27] MEDS: ROCEPHIN/NS 2 GM/100 ML 2 GM/100 ML BAG IV SCH (09:46)
[2018-02-27] MEDS: LOVENOX SUB-Q SCH (09:46)
[2018-02-27] MEDS: NORMODYNE PO SCH ×2 (09:47→21:50)
[2018-02-27] MEDS: NORVASC PO SCH (09:47)
[2018-02-27] MEDS: SODIUM CHLORIDE FLUSH SYRINGE 10 ML IV SCH ×2 (09:47→21:51)
--- NOTE | 2018-02-27 12:46 | Consultation ---
History of Present Illness Consult date: 02/27/18 Reason for consult: dyspnea, cough, pneumonia, other (respiratory failure.) History of present illness: Call to evaluate case of a 37-year-old -[place]ish female, admitted to the hospital with a history of progressive cough, general malaise and fever. The patient reports that he started with mild general malaise, prostration,some chest congestion or cough about one week ago. She reported that her son and her mother has been sick at home with bronchitis. She came in and was noted to be hypoxemic with elevated blood pressure and was admitted for further care. She has a past medical history of asthma and also sleep apnea, but is currently not on CPAP therapy. This after reportedly losing her insurance. Admission x-rays show what appear to be out left upper lobe mid lung infiltrate and she had been started on ABX for pneumonia. 02/21/18 02/25/18 19:24 05:24 Carbon Dioxide 31 H HCG, Qual HCG, Quant Urine Opiates Screen Urine Methadone Screen Ur Barbiturates Screen Ur Phencyclidine Scrn Ur Amphetamines Screen U Benzodiazepines Scrn Urine Cocaine Screen U Marijuana (THC) Screen Influenza A (Rapid) Negative Influenza B (Rapid) Negative Medications and Allergies Allergies Allergy/AdvReac Type Severity Reaction Status Date / Time haloperidol [From Haldol] Allergy Seizure Verified 11/11/13 17:44 haloperidol lactate Allergy Seizure Verified 11/11/13 17:44 [From Haldol] lisinopril Allergy Unknown Verified 08/02/17 10:06 Home Medications Medication Instructions Recorded Confirmed Last Taken Type Labetalol [Normodyne TAB] 200 mg PO BID #60 tablet 08/04/17 02/27/18 Unknown Rx amLODIPine [Norvasc] 10 mg PO QDAY #30 tablet 08/04/17 02/27/18 Unknown Rx hydroCHLOROthiazide [HCTZ] 25 mg PO QDAY #30 tablet 08/04/17 02/27/18 Unknown Rx Active Meds: Active Medications Acetaminophen (Tylenol) 650 mg PO Q4H PRN PRN Reason: Pain MILD(1-3)/Fever >100.5/VOGEL Last Admin: 02/26/18 17:56 Dose: 650 mg Documented by: Albuterol (Proventil) 2.5 mg IH Q4HRT PRN PRN Reason: Shortness Of Breath Albuterol/Ipratropium (Duoneb *Not For Prn Use*) 1 ampul IH TIDRT [facility] Last Admin: 02/27/18 09:01 Dose: 1 ampul Documented by: Amlodipine Besylate (Norvasc) 10 mg PO QDAY [facility] Last Admin: 02/27/18 09:47 Dose: 10 mg Documented by: Benzonatate (Tessalon Perles) 100 mg PO Q8HR [facility] Last Admin: 02/27/18 06:42 Dose: Not Given Documented by: Enoxaparin Sodium (Lovenox) 40 mg SUB-Q QDAY [facility] Last Admin: 02/27/18 09:46 Dose: 40 mg Documented by: Famotidine (Pepcid) 20 mg PO BID [facility] Last Admin: 02/27/18 09:46 Dose: 20 mg Documented by: Hydromorphone HCl (Dilaudid) 0.5 mg IV Q3H PRN PRN Reason: Pain , Severe (7-10) Last Admin: 02/26/18 22:23 Dose: 0.5 mg Documented by: Ceftriaxone Sodium (Rocephin/Ns 2 Gm/100 Ml) 2 gm in 100 mls @ 200 mls/hr IV Q24HR [facility]; Protocol Last Admin: 02/27/18 09:46 Dose: 200 mls/hr Documented by: Insulin Human Isoph/Insulin Regular (Humulin 70/30) 5 unit SUB-Q BIDDIAB [facility] Insulin Human Lispro (Humalog) 0 unit SUB-Q ACHS [facility]; Protocol Last Admin: 02/27/18 08:42 Dose: 4 unit Documented by: Labetalol HCl (Normodyne) 200 mg PO BID [facility] Last Admin: 02/27/18 09:47 Dose: 200 mg Documented by: Methylprednisolone Sodium Succinate (Solu-Medrol) 80 mg IV Q8HR [facility] Last Admin: 02/27/18 06:42 Dose: Not Given Documented by: Ondansetron HCl (Zofran) 4 mg IV Q8H PRN PRN Reason: Nausea And Vomiting Last Admin: 02/25/18 18:02 Dose: 4 mg Documented by: Oxycodone/Acetaminophen (Percocet 5/325) 1 tab PO Q6H PRN PRN Reason: Pain, Moderate (4-6) Last Admin: 02/27/18 04:44 Dose: 1 tab Documented by: Pseudoephedrine/Acetam/Chlorphenir (Robitussin Ac) 10 ml PO Q6H PRN PRN Reason: Cough Last Admin: 02/27/18 04:45 Dose: 10 ml Documented by: Sodium Chloride (Sodium Chloride Flush Syringe 10 Ml) 10 ml IV BID MICHELLE Last Admin: 02/27/18 09:47 Dose: 10 ml Documented by: Sodium Chloride (Sodium Chloride Flush Syringe 10 Ml) 10 ml IV PRN PRN PRN Reason: LINE FLUSH Physical Examination Vital signs: Vital Signs Temp Pulse Resp BP Pulse Ox 101.2 F H 127 H 24 194/107 94 02/21/18 14:25 02/21/18 14:25 02/21/18 14:25 02/21/18 14:25 02/21/18 14:25 General appearance: no acute distress, alert, other (morbidly obese) Eyes: non-icteric ENT: other (Mallampati 3) Neck: supple Ascultation: Left: rales, Bilateral: clear, diminished breath sounds Cardiovascular: regular rate and rhythm Gastrointestinal: normoactive bowel sounds, non-distended Integumentary: normal Extremities: no cyanosis, no edema Musculoskeletal: no deformities normal mental status, non-focal exam mood appropriate, affect normal Results - Laboratory Findings CBC and BMP: 02/24/18 04:30 02/25/18 05:24 PT/INR, D-dimer PT 13.3 Sec. (12.2-14.9) 02/21/18 14:50 INR 0.97 (0.87-1.13) 02/21/18 14:50 Abnormal lab findings: Abnormal Labs 02/21/18 02/21/18 02/21/18 14:28 14:35 14:35 MCH RDW Lymph % (Auto) [place] % (Auto) VBG pH Sodium 133 L Potassium 2.9 L* Chloride 90.2 L Carbon Dioxide BUN Creatinine Glucose 275 H POC Glucose 268 H Hemoglobin A1c Lactic Acid 3.50 H* Calcium Magnesium Albumin 3.2 L 02/21/18 02/21/18 02/21/18 14:35 14:50 15:15 MCH 26 L RDW 16.1 H Lymph % (Auto) [place] % (Auto) 11.6 H VBG pH 7.507 H Sodium Potassium Chloride Carbon Dioxide BUN Creatinine Glucose POC Glucose Hemoglobin A1c Lactic Acid 3.70 H* Calcium Magnesium Albumin 02/21/18 02/21/18 02/22/18 21:13 21:22 05:35 MCH 26 L RDW 16.2 H Lymph % (Auto) 40.3 H [place] % (Auto) 13.0 H VBG pH Sodium Potassium Chloride Carbon Dioxide BUN Creatinine Glucose POC Glucose 155 H Hemoglobin A1c 10.9 H Lactic Acid Calcium Magnesium Albumin 02/22/18 02/22/18 02/22/18 05:35 08:23 11:41 MCH RDW Lymph % (Auto) [place] % (Auto) VBG pH Sodium Potassium 3.1 L Chloride 97.2 L Carbon Dioxide BUN 6 L Creatinine 0.6 L Glucose 205 H POC Glucose 174 H 192 H Hemoglobin A1c Lactic Acid Calcium 7.3 L Magnesium Albumin 3.0 L 02/22/18 02/22/18 02/23/18 16:54 21:25 07:42 MCH RDW Lymph % (Auto) [place] % (Auto) VBG pH Sodium Potassium Chloride Carbon Dioxide BUN Creatinine Glucose POC Glucose 119 H 164 H 164 H Hemoglobin A1c Lactic Acid Calcium Magnesium Albumin 02/23/18 02/23/18 02/23/18 08:02 11:28 16:28 MCH RDW Lymph % (Auto) [place] % (Auto) VBG pH Sodium 136 L Potassium 3.1 L Chloride 97.8 L Carbon Dioxide BUN Creatinine 0.6 L Glucose 175 H POC Glucose 156 H 130 H Hemoglobin A1c Lactic Acid Calcium 7.3 L Magnesium Albumin 02/23/18 02/24/18 02/24/18 22:16 04:30 04:30 MCH 26 L RDW 16.2 H Lymph % (Auto) [place] % (Auto) VBG pH Sodium Potassium 3.2 L Chloride 96.5 L Carbon Dioxide BUN 5 L Creatinine 0.6 L Glucose 142 H POC Glucose 192 H Hemoglobin A1c Lactic Acid Calcium 7.9 L Magnesium 1.50 L Albumin 02/24/18 02/24/18 02/24/18 07:42 11:35 17:33 MCH RDW Lymph % (Auto) [place] % (Auto) VBG pH Sodium Potassium Chloride Carbon Dioxide BUN Creatinine Glucose POC Glucose 154 H 168 H 119 H Hemoglobin A1c Lactic Acid Calcium Magnesium Albumin 02/24/18 02/25/18 02/25/18 21:50 05:24 08:14 MCH RDW Lymph % (Auto) [place] % (Auto) VBG pH Sodium 136 L Potassium 3.1 L Chloride 94.6 L Carbon Dioxide 31 H BUN 4 L Creatinine 0.5 L Glucose 136 H POC Glucose 148 H 121 H Hemoglobin A1c Lactic Acid Calcium 7.8 L Magnesium Albumin 02/25/18 02/25/18 02/25/18 12:14 17:05 21:42 MCH RDW Lymph % (Auto) [place] % (Auto) VBG pH Sodium Potassium Chloride Carbon Dioxide BUN Creatinine Glucose POC Glucose 143 H 116 H 170 H Hemoglobin A1c Lactic Acid Calcium Magnesium Albumin 02/26/18 02/26/18 02/26/18 08:34 11:55 17:46 MCH RDW Lymph % (Auto) [place] % (Auto) VBG pH Sodium Potassium Chloride Carbon Dioxide BUN Creatinine Glucose POC Glucose 198 H 216 H 283 H Hemoglobin A1c Lactic Acid Calcium Magnesium Albumin 02/26/18 02/27/18 02/27/18 20:46 07:52 12:08 MCH RDW Lymph % (Auto) [place] % (Auto) VBG pH Sodium Potassium Chloride Carbon Dioxide BUN Creatinine Glucose POC Glucose 257 H 258 H 282 H Hemoglobin A1c Lactic Acid Calcium Magnesium Albumin - Diagnostic Findings Chest x-ray: report reviewed, image reviewed Additional studies: Reviewed ventilation perfusion scan Assessment and Plan Pneumonia, community-acquired. Most likely post influenza or influenza related Hypoxia with respiratory failure. Clinically improved but needs monitoring Obesity hypoventilation syndrome or or chest. BMI over 30 + MAAME + bicarbonate > 30 suggestive. Hypertension Hypokalemia Recommendations Continue oxygen support avoid hypoxemia Continue with antibiotics, will favor ceftriaxone plus azithromycin in the context of abnormal hCG [employer] consultation, pelvic sonogram ABGs, check for hypercapnic failure DVT prophylaxis If the patient had been sick for > 7 days, may not need contact isolation for flu precautions I agree with empiric BiPAP trial at nighttime for MAAME management Discussed with patient in detail. All questions answered.
[2018-02-27] MEDS: DILAUDID IV PRN ×2 (15:19→22:05)
[2018-02-27] MEDS: COLACE PO SCH (21:50)
[2018-02-27] MEDS: ZOFRAN IV PRN (22:06)
[2018-02-27] MEDS: TYLENOL PO PRN (22:07)
[2018-02-28] MEDS: TESSALON PERLES PO SCH ×2 (05:50→14:24)
[2018-02-28] MEDS: SOLU-Medrol IV SCH ×2 (05:50→14:24)
[2018-02-28] MEDS: ROBITUSSIN AC PO PRN (07:17)
[2018-02-28] MEDS: DUONEB *Not for PRN Use IH SCH ×2 (07:47→13:41)
[2018-02-28] MEDS: HumaLOG SUB-Q SCH ×2 (08:28→13:21)
[2018-02-28] MEDS: COLACE PO SCH (10:29)
[2018-02-28] MEDS: LOVENOX SUB-Q SCH (10:29)
[2018-02-28] MEDS: ROCEPHIN/NS 2 GM/100 ML 2 GM/100 ML BAG IV SCH (10:29)
[2018-02-28] MEDS: NORVASC PO SCH (10:29)
[2018-02-28] MEDS: NORMODYNE PO SCH (10:29)
[2018-02-28] MEDS: SODIUM CHLORIDE FLUSH SYRINGE 10 ML IV SCH (10:30)
[2018-02-28] MEDS: PEPCID PO SCH (10:30)
[2018-02-28] MEDS: DILAUDID IV PRN (10:50)
--- NOTE | 2018-02-28 11:56 | Progress Note ---
Assessment and Plan Pneumonia, community-acquired. Most likely post influenza or influenza related Hypoxia with respiratory failure. Improved Obesity hypoventilation syndrome or or chest. BMI over 30 + MAAME + bicarbonate > 30 suggestive. Hypertension Hypokalemia Recommendations Continue with antibiotics, will favor ceftriaxone plus azithromycin in the context of abnormal hCG ABGs, check for hypercapnic failure. Can also do has an outpatient DVT prophylaxis. Reevaluation for sleep apnea at the office once discharged. Patient's card given for appointment Discussed with patient in detail. All questions answered. We'll sign off. Follow-up as needed Subjective Date of service: 02/28/18 Interval history: Reports no respiratory complaints. States that she was able to walk the hallway without oxygen support, well tolerated. No cough or chest pain. No wheezing Objective Vital Signs - 12hr 02/28/18 02/28/18 02/28/18 01:54 05:37 07:46 Temperature 97.7 F Pulse Rate 75 89 Pulse Rate [ 72 Anterior Bilateral Throughout] Respiratory 24 22 Rate Respiratory 23 Rate [Anterior Bilateral Throughout] Blood Pressure 149/96 O2 Sat by Pulse 99 87 95 Oximetry 02/28/18 02/28/18 07:47 07:56 Temperature Pulse Rate Pulse Rate [ 72 86 Anterior Bilateral Throughout] Respiratory Rate Respiratory 20 20 Rate [Anterior Bilateral Throughout] Blood Pressure O2 Sat by Pulse Oximetry Constitutional: no acute distress, alert, other (morbidly obese) Eyes: non-icteric ENT: other (Mallampati 3) Neck: supple Ascultation: Bilateral: clear, diminished breath sounds Cardiovascular: regular rate and rhythm Gastrointestinal: normoactive bowel sounds, non-distended Integumentary: normal Extremities: no cyanosis, no edema Neurologic: normal mental status, non-focal exam Psychiatric: mood appropriate, affect normal CBC and BMP: 02/24/18 04:30 02/25/18 05:24 ABG, PT/INR, D-dimer: PT/INR, D-dimer PT 13.3 Sec. (12.2-14.9) 02/21/18 14:50 INR 0.97 (0.87-1.13) 02/21/18 14:50 Abnormal lab findings: Abnormal Labs 02/21/18 02/21/18 02/21/18 14:28 14:35 14:35 MCH RDW Lymph % (Auto) [place] % (Auto) VBG pH Sodium 133 L Potassium 2.9 L* Chloride 90.2 L Carbon Dioxide BUN Creatinine Glucose 275 H POC Glucose 268 H Hemoglobin A1c Lactic Acid 3.50 H* Calcium Magnesium Albumin 3.2 L 02/21/18 02/21/18 02/21/18 14:35 14:50 15:15 MCH 26 L RDW 16.1 H Lymph % (Auto) [place] % (Auto) 11.6 H VBG pH 7.507 H Sodium Potassium Chloride Carbon Dioxide BUN Creatinine Glucose POC Glucose Hemoglobin A1c Lactic Acid 3.70 H* Calcium Magnesium Albumin 02/21/18 02/21/18 02/22/18 21:13 21:22 05:35 MCH 26 L RDW 16.2 H Lymph % (Auto) 40.3 H [place] % (Auto) 13.0 H VBG pH Sodium Potassium Chloride Carbon Dioxide BUN Creatinine Glucose POC Glucose 155 H Hemoglobin A1c 10.9 H Lactic Acid Calcium Magnesium Albumin 02/22/18 02/22/18 02/22/18 05:35 08:23 11:41 MCH RDW Lymph % (Auto) [place] % (Auto) VBG pH Sodium Potassium 3.1 L Chloride 97.2 L Carbon Dioxide BUN 6 L Creatinine 0.6 L Glucose 205 H POC Glucose 174 H 192 H Hemoglobin A1c Lactic Acid Calcium 7.3 L Magnesium Albumin 3.0 L 02/22/18 02/22/18 02/23/18 16:54 21:25 07:42 MCH RDW Lymph % (Auto) [place] % (Auto) VBG pH Sodium Potassium Chloride Carbon Dioxide BUN Creatinine Glucose POC Glucose 119 H 164 H 164 H Hemoglobin A1c Lactic Acid Calcium Magnesium Albumin 02/23/18 02/23/18 02/23/18 08:02 11:28 16:28 MCH RDW Lymph % (Auto) [place] % (Auto) VBG pH Sodium 136 L Potassium 3.1 L Chloride 97.8 L Carbon Dioxide BUN Creatinine 0.6 L Glucose 175 H POC Glucose 156 H 130 H Hemoglobin A1c Lactic Acid Calcium 7.3 L Magnesium Albumin 02/23/18 02/24/18 02/24/18 22:16 04:30 04:30 MCH 26 L RDW 16.2 H Lymph % (Auto) [place] % (Auto) VBG pH Sodium Potassium 3.2 L Chloride 96.5 L Carbon Dioxide BUN 5 L Creatinine 0.6 L Glucose 142 H POC Glucose 192 H Hemoglobin A1c Lactic Acid Calcium 7.9 L Magnesium 1.50 L Albumin 02/24/18 02/24/18 02/24/18 07:42 11:35 17:33 MCH RDW Lymph % (Auto) [place] % (Auto) VBG pH Sodium Potassium Chloride Carbon Dioxide BUN Creatinine Glucose POC Glucose 154 H 168 H 119 H Hemoglobin A1c Lactic Acid Calcium Magnesium Albumin 02/24/18 02/25/18 02/25/18 21:50 05:24 08:14 MCH RDW Lymph % (Auto) [place] % (Auto) VBG pH Sodium 136 L Potassium 3.1 L Chloride 94.6 L Carbon Dioxide 31 H BUN 4 L Creatinine 0.5 L Glucose 136 H POC Glucose 148 H 121 H Hemoglobin A1c Lactic Acid Calcium 7.8 L Magnesium Albumin 02/25/18 02/25/18 02/25/18 12:14 17:05 21:42 MCH RDW Lymph % (Auto) [place] % (Auto) VBG pH Sodium Potassium Chloride Carbon Dioxide BUN Creatinine Glucose POC Glucose 143 H 116 H 170 H Hemoglobin A1c Lactic Acid Calcium Magnesium Albumin 02/26/18 02/26/18 02/26/18 08:34 11:55 17:46 MCH RDW Lymph % (Auto) [place] % (Auto) VBG pH Sodium Potassium Chloride Carbon Dioxide BUN Creatinine Glucose POC Glucose 198 H 216 H 283 H Hemoglobin A1c Lactic Acid Calcium Magnesium Albumin 02/26/18 02/27/18 02/27/18 20:46 07:52 12:08 MCH RDW Lymph % (Auto) [place] % (Auto) VBG pH Sodium Potassium Chloride Carbon Dioxide BUN Creatinine Glucose POC Glucose 257 H 258 H 282 H Hemoglobin A1c Lactic Acid Calcium Magnesium Albumin 02/27/18 02/27/18 02/28/18 16:06 21:56 08:14 MCH RDW Lymph % (Auto) [place] % (Auto) VBG pH Sodium Potassium Chloride Carbon Dioxide BUN Creatinine Glucose POC Glucose 261 H 298 H 255 H Hemoglobin A1c Lactic Acid Calcium Magnesium Albumin
--- NOTE | 2018-02-28 13:00 | Discharge Summary ---
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 -Acute hypoxic respiratory failure, resolved -Left Pneumonia with Sepsis, finished abx -Hypokalemia: replace and recheck -Asthma, MAAME suspect: nebs treatment, may benefit from steroids, will consult Pulmonology -Morbid Obesity, bmi 53.6: counseling done -Type 2 DM, a1c 10.9: counseling done, added ssi and long acting insulin -MAAME: consult respiratory for cpap -DVT/GI prophylaxis reviewed Dispos: d/c once off o2, ROOM AIR RESTING PULSE OXIMETRY: 96% ROOM AIR PULSE OXIMETRY DURING EXERCISE: 91% PULSE OXIMETRY ON 2 LPM O2 VIA NASAL CANNULA DURING EXERCISE: 96% Initialized on 02/28/18 11:53 - END OF NOTE Disposition: DC-01 TO HOME OR SELFCARE Time spent for discharge: 34 minutes Core Measure Documentation - Palliative Care Palliative Care/ Comfort Measures: Not Applicable - Core Measures Any of the following diagnoses?: none - VTE Discharge Requirements Deep Vein Thrombosis/Pulmonary Embolism Present on Admission: No Has pt received <5 days of overlap therapy or INR<2.0: No Anticoagulant overlap therapy prescribed at discharge: No Contraindication No Overlap Therapy order at DC: Not Indicated Exam - Physical Exam Narrative exam: Gen: ill appearing, mild increase accessory muscles, Awake, Alert, Orientated x 3, bmi 51 HEENT: NCAT, EOMI, PERRL, OP Clear Neck: supple, no adenopathy, no thyromegaly, no JVD CVS/Heart: RRR, normal S1S2, pulses present bilaterally Chest/Lungs: diminished bs bilateral, coarse bs on the left, Symmetrical chest expansion, good air entry bilaterally GI/Abdomen: soft, NTND, good bowel sounds, no guarding or rebound /Bladder: no suprapubic tenderness, no CVA or paraspinal tenderness Extermity/Skin: no c/c/e, no obvious rash MSK: FROM x 4 Neuro: CN 2-12 grossly intact, no new focal deficits Psych: calm - Constitutional Vitals: Temp Pulse Resp BP Pulse Ox 97.7 F 86 20 149/96 95 02/28/18 05:37 02/28/18 07:56 02/28/18 07:56 02/28/18 05:37 02/28/18 07:46 Plan Activity: other (no strenous activity until cleared by pcp) Diet: low salt, diabetic Special Instructions: record daily BP diary, record blood sugar diary Additional Instructions: need sleep study test Follow up with: PRIMARY CARE, [Primary Care Provider] - 3-5 Days LEANN AGUILAR MD [Staff Physician] - 7 Days Prescriptions: ALBUTEROL Inhaler(NF) [VENTOLIN Inhaler(NF)] 2 puff IH Q4H PRN #1 inha PRN Reason: Shortness Of Breath amLODIPine [Norvasc] 10 mg PO QDAY #30 tablet Benzonatate [Tessalon Perles] 100 mg PO Q8HR PRN #15 capsule PRN Reason: Shortness Of Breath Docusate Sodium [Colace CAP] 100 mg PO BID #30 capsule Famotidine [Pepcid] 20 mg PO BID #14 tablet Insulin NPH/Regular [NovoLIN 70/30] 5 unit SUB-Q BIDDIAB #100 units Insulin Regular, Human [Novolin R] 1 dose SQ ACHS PRN #1 vial PRN Reason: Hyperglycemia Labetalol [Normodyne TAB] 200 mg PO BID #60 tablet methylPREDNISolone [Medrol] 1 dose PO DAILY #1 tab.ds.pk oxyCODONE /ACETAMINOPHEN [Percocet 5/325 mg] 1 tab PO Q6H PRN #10 tablet PRN Reason: Pain , Severe (7-10)
[2018-02-28] MEDS ORDERED: AFLURIA QUAD 2018-2019 SYRINGE IM ONE (14:00)
[2018-02-28 15:57] VITALS: BP 144/87
== END 2018-02-28 17:30 | disposition home or self-care (01) | DRG 871 ==
LOC: ED 14:21 → 3A 18:29
PROVIDERS: ADMIT Internal Medicine; ATTEND Internal Medicine
PROC: 3E0234Z Introduction of Serum, Toxoid and Vaccine into Muscle, Percutaneous Approach (ICD-10-PCS; principal; 2018-02-22)
PROC: 5A09457 Assistance with Respiratory Ventilation, 24-96 Consecutive Hours, Continuous Positive Airway Pressure (ICD-10-PCS; 2018-02-23)
PROC: 5A09357 Assistance with Respiratory Ventilation, Less than 24 Consecutive Hours, Continuous Positive Airway Pressure (ICD-10-PCS; 2018-02-28)
DX: A41.9 Sepsis, unspecified organism (principal); J18.9 Pneumonia, unspecified organism; J96.01 Acute respiratory failure with hypoxia; Z68.43 Body mass index [BMI] 50.0-59.9, adult; E66.2 Morbid (severe) obesity with alveolar hypoventilation; I11.0 Hypertensive heart disease with heart failure; I50.9 Heart failure, unspecified; J45.909 Unspecified asthma, uncomplicated; E11.9 Type 2 diabetes mellitus without complications; M19.90 Unspecified osteoarthritis, unspecified site; E87.6 Hypokalemia; Z71.3 Dietary counseling and surveillance; Z87.442 Personal history of urinary calculi; Z90.49 Acquired absence of other specified parts of digestive tract; Z82.49 Family history of ischemic heart disease and other diseases of the circulatory system; Z79.899 Other long term (current) drug therapy; Z23 Encounter for immunization
CPT/HCPCS: 36415; 71045; 71046; 80048; 80053; 81001; 82140; 82805; 82962; 83036; 83735; 85025; 85027; 85610; 87040; 87086; 87116; 87400; 90686; 90732; 93005; 93010; 94640; 94660; 94760; 96361; 96365; 96372; G0378; J0456; J0696; J1170; J1650; J1815; J1940; J2405; J2930; J3475; J3480; J7030; J7050

== ENCOUNTER 2018-04-16 14:06 | Emergency (ER) | payer SELFPAY ==
[2018-04-16] MEDS ORDERED: REGLAN IV ONE (14:33)
[2018-04-16] MEDS ORDERED: SUBLIMAZE IV ONE (14:33)
[2018-04-16] MEDS ORDERED: NACL 0.9% 500 ML 500 ML IV ONE (14:34)
[2018-04-16] MEDS ORDERED: BENADRYL IV ONE (14:34)
[2018-04-16 15:19] LABS: Hematocrit 40.4 % (30.3-42.9); Hemoglobin 13.4 gm/dl (10.1-14.3); Mean Corpuscular HGB Conc 33 % (30-34); Mean Corpuscular Volume 79 fl (79-97); Platelet Count 329 K/mm3 (140-440); Red Cell Distribution Width 15.1 % (13.2-15.2)
[2018-04-16 15:33] LABS: Alanine Aminotransferase 21 units/L (7-56); Albumin 4.1 g/dL (3.9-5); BUN/Creatinine Ratio 13; Blood Urea Nitrogen 10 mg/dL (7-17); Calcium 9.1 mg/dL (8.4-10.2); Hemolysis Index 2
[2018-04-16 15:58] LABS: Anisocytosis 1+; Basophils % (Manual) 0 % (0.0-1.8); Eosinophils % (Manual) 0 % (0.0-4.3); Platelet Estimate Consistent w Auto; Total Cells Counted 100
--- NOTE | 2018-04-16 16:38 | XRay Report ---
FINAL REPORT EXAM: XR CHEST 1V AP HISTORY: chest TECHNIQUE: Frontal chest radiograph. PRIORS: 02/25/2018. FINDINGS: The cardiomediastinal silhouette is normal. No focal consolidation. No pleural effusion. No pneumothorax. No acute osseous abnormality. IMPRESSION: No acute cardiopulmonary process.
[2018-04-16] MEDS ORDERED: NACL 0.9% 1000 ML 1,000 ML IV ONE ×2 (17:34→18:55)
[2018-04-16] MEDS ORDERED: DILAUDID IV ONE (17:35)
--- NOTE | 2018-04-16 18:51 | Emergency Department Report ---
<JACE MANCILLA - Last Filed: 04/16/18 19:51> ED General Adult HPI - General Chief complaint: Abdominal Pain Stated complaint: N/V Time Seen by Provider: 04/16/18 14:27 Source: patient Mode of arrival: Ambulatory Limitations: No Limitations - History of Present Illness Initial comments: Patient is a 37-year-old female past medical history of obesity diabetes and high blood pressure presents with nausea and vomiting that has been going on for last couple days. Patient states that she has abdominal pain and had pain has been going on for 2 days. The pain is 8 out of 10 as an achy type pain nothing makes it better and nothing makes it worse. Patient also has been having diarrhea and vomiting. She's been taking her insulin today. Severity scale (0 -10): 6 - Related Data Previous Rx's Medication Instructions Recorded Last Taken Type ALBUTEROL Inhaler(NF) [VENTOLIN 2 puff IH Q4H PRN #1 inha 02/28/18 Unknown Rx Inhaler(NF)] Acetaminophen [Acetaminophen TAB] 650 mg PO Q4H PRN #15 tablet 02/28/18 Unknown Rx Benzonatate [Tessalon Perles] 100 mg PO Q8HR PRN #15 capsule 02/28/18 Unknown Rx Docusate Sodium [Colace CAP] 100 mg PO BID #30 capsule 02/28/18 Unknown Rx Famotidine [Pepcid] 20 mg PO BID #14 tablet 02/28/18 Unknown Rx methylPREDNISolone [Medrol] 1 dose PO DAILY #1 tab.ds.pk 02/28/18 Unknown Rx Insulin NPH/Regular [NovoLIN 70/30] 5 unit SUB-Q BIDDIAB #100 units 04/16/18 Unknown Rx Insulin Regular, Human [Novolin R] 1 dose SQ ACHS PRN #1 vial 04/16/18 Unknown Rx Labetalol [Normodyne TAB] 200 mg PO BID #60 tablet 04/16/18 Unknown Rx Promethazine [Phenergan TAB] 25 mg PO Q6HR PRN #20 tab 04/16/18 Unknown Rx amLODIPine [Norvasc] 10 mg PO QDAY #90 tablet 04/16/18 Unknown Rx oxyCODONE /ACETAMINOPHEN [Percocet 1 tab PO Q6H PRN #10 tablet 04/16/18 Unknown Rx 5/325 mg] Allergies Allergy/AdvReac Type Severity Reaction Status Date / Time haloperidol [From Haldol] Allergy Seizure Verified 11/11/13 17:44 haloperidol lactate Allergy Seizure Verified 11/11/13 17:44 [From Haldol] Iodinated Contrast- Oral and Allergy Anaphylaxis Verified 04/16/18 19:19 IV Dye lisinopril Allergy Unknown Verified 08/02/17 10:06 ED Review of Systems Constitutional: denies: chills, fever Eyes: denies: eye pain, eye discharge, vision change ENT: denies: ear pain, throat pain Respiratory: denies: cough, shortness of breath, wheezing Cardiovascular: denies: chest pain, palpitations Endocrine: no symptoms reported Gastrointestinal: nausea, vomiting. denies: abdominal pain, diarrhea Genitourinary: denies: urgency, dysuria, discharge Musculoskeletal: denies: back pain, joint swelling, arthralgia Skin: denies: rash, lesions Neurological: headache. denies: weakness, paresthesias Psychiatric: denies: anxiety, depression Hematological/Lymphatic: denies: easy bleeding, easy bruising ED Past Medical Hx - Past Medical History Hx Hypertension: Yes Hx Heart Attack/AMI: No Hx Congestive Heart Failure: Yes Hx Diabetes: Yes Hx Deep Vein Thrombosis: No Hx Pulmonary Embolism: No Hx Liver Disease: No Hx Renal Disease: No Hx Seizures: Yes Hx Kidney Stones: Yes Hx Asthma: Yes Hx COPD: No Hx Tuberculosis: No Hx Dementia: No Hx HIV: No Additional medical history: Endometriosis - Surgical History Hx Coronary Stent: No Hx Open Heart Surgery: No Hx Pacemaker: No Hx Internal Defibrillator: No Hx Cholecystectomy: No Hx Appendectomy: Yes Hx Breast Surgery: No Additional Surgical History: D&C - Social History Smoking Status: Never Smoker Substance Use Type: None - Medications Home Medications: Home Medications Medication Instructions Recorded Confirmed Last Taken Type ALBUTEROL Inhaler(NF) [VENTOLIN 2 puff IH Q4H PRN #1 inha 02/28/18 04/16/18 Unknown Rx Inhaler(NF)] Acetaminophen [Acetaminophen TAB] 650 mg PO Q4H PRN #15 tablet 02/28/18 04/16/18 Unknown Rx Benzonatate [Tessalon Perles] 100 mg PO Q8HR PRN #15 capsule 02/28/18 04/16/18 Unknown Rx Docusate Sodium [Colace CAP] 100 mg PO BID #30 capsule 02/28/18 04/16/18 Unknown Rx Famotidine [Pepcid] 20 mg PO BID #14 tablet 02/28/18 04/16/18 Unknown Rx methylPREDNISolone [Medrol] 1 dose PO DAILY #1 tab.ds.pk 02/28/18 04/16/18 Unknown Rx Insulin NPH/Regular [NovoLIN 70/30] 5 unit SUB-Q BIDDIAB #100 units 04/16/18 Unknown Rx Insulin Regular, Human [Novolin R] 1 dose SQ ACHS PRN #1 vial 04/16/18 Unknown Rx Labetalol [Normodyne TAB] 200 mg PO BID #60 tablet 04/16/18 Unknown Rx Promethazine [Phenergan TAB] 25 mg PO Q6HR PRN #20 tab 04/16/18 Unknown Rx amLODIPine [Norvasc] 10 mg PO QDAY #90 tablet 04/16/18 Unknown Rx oxyCODONE /ACETAMINOPHEN [Percocet 1 tab PO Q6H PRN #10 tablet 04/16/18 Unknown Rx 5/325 mg] ED Physical Exam - General Limitations: No Limitations General appearance: alert, in no apparent distress - Head Head exam: Present: atraumatic, normocephalic - Eye Eye exam: Present: normal appearance - ENT ENT exam: Present: mucous membranes moist - Neck Neck exam: Present: normal inspection - Respiratory Respiratory exam: Present: normal lung sounds bilaterally. Absent: respiratory distress - Cardiovascular Cardiovascular Exam: Present: regular rate, normal rhythm. Absent: systolic murmur, diastolic murmur, rubs, gallop - GI/Abdominal GI/Abdominal exam: Present: soft, normal bowel sounds - Extremities Exam Extremities exam: Present: normal inspection - Back Exam Back exam: Present: normal inspection - Neurological Exam Neurological exam: Present: alert, oriented X3 - Psychiatric Psychiatric exam: Present: normal affect, normal mood - Skin Skin exam: Present: warm, dry, intact, normal color. Absent: rash ED Medical Decision Making - Lab Data Result diagrams: 04/16/18 14:57 04/16/18 14:57 Lab Results 04/16/18 04/16/18 Range/Units 14:57 14:57 WBC 7.6 (4.5-11.0) K/mm3 RBC 5.10 H (3.65-5.03) M/mm3 Hgb 13.4 (10.1-14.3) gm/dl Hct 40.4 (30.3-42.9) % MCV 79 (79-97) fl MCH 26 L (28-32) pg MCHC 33 (30-34) % RDW 15.1 (13.2-15.2) % Plt Count 329 (140-440) K/mm3 Add Manual Diff Complete Total Counted 100 Seg Neutrophils % Field Administrative Assistant Seg Neuts % (Manual) 96.0 H (40.0-70.0) % Band Neutrophils % 0 % Lymphocytes % (Manual) 1.0 L (13.4-35.0) % Reactive Lymphs % (Man) 0 % Monocytes % (Manual) 3.0 (0.0-7.3) % Eosinophils % (Manual) 0 (0.0-4.3) % Basophils % (Manual) 0 (0.0-1.8) % Metamyelocytes % 0 % Myelocytes % 0 % Promyelocytes % 0 % Blast Cells % 0 % Nucleated RBC % Not Reportable Seg Neutrophils # Man 7.3 (1.8-7.7) K/mm3 Band Neutrophils # 0.0 K/mm3 Lymphocytes # (Manual) 0.1 L (1.2-5.4) K/mm3 Abs React Lymphs (Man) 0.0 K/mm3 Monocytes # (Manual) 0.2 (0.0-0.8) K/mm3 Eosinophils # (Manual) 0.0 (0.0-0.4) K/mm3 Basophils # (Manual) 0.0 (0.0-0.1) K/mm3 Metamyelocytes # 0.0 K/mm3 Myelocytes # 0.0 K/mm3 Promyelocytes # 0.0 K/mm3 Blast Cells # 0.0 K/mm3 WBC Morphology Not Reportable Hypersegmented Neuts Not Reportable Hyposegmented Neuts Not Reportable Hypogranular Neuts Not Reportable Smudge Cells Not Reportable Toxic Granulation Not Reportable Toxic Vacuolation Not Reportable Dohle Bodies Not Reportable Pelger-Huet Anomaly Not Reportable Neda Rods Not Reportable Platelet Estimate Consistent w auto Clumped Platelets Not Reportable Plt Clumps, EDTA Not Reportable Large Platelets Not Reportable Giant Platelets Not Reportable Platelet Satelliting Not Reportable Plt Morphology Comment Not Reportable RBC Morphology Not Reportable Dimorphic RBCs Not Reportable Polychromasia Not Reportable Hypochromasia Not Reportable Poikilocytosis Not Reportable Anisocytosis 1+ Microcytosis 1+ Macrocytosis Not Reportable Spherocytes Not Reportable Pappenheimer Bodies Not Reportable Sickle Cells Not Reportable Target Cells Not Reportable Tear Drop Cells Not Reportable Ovalocytes Not Reportable Helmet Cells Not Reportable Lance-[place] Bodies Not Reportable Erath Rings Not Reportable Rosa Cells Not Reportable Bite Cells Not Reportable Crenated Cell Not Reportable Elliptocytes Not Reportable Acanthocytes (Spur) Not Reportable Rouleaux Not Reportable Hemoglobin C Crystals Not Reportable Schistocytes Not Reportable Malaria parasites Not Reportable Jose Bodies Not Reportable Hem Pathologist Commnt No Sodium 140 (137-145) mmol/L Potassium 3.0 L (3.6-5.0) mmol/L Chloride 95.7 L (98-107) mmol/L Carbon Dioxide 30 (22-30) mmol/L Anion Gap 17 mmol/L BUN 10 (7-17) mg/dL Creatinine 0.8 (0.7-1.2) mg/dL Estimated GFR > 60 ml/min BUN/Creatinine Ratio 13 % Glucose 180 H (65-100) mg/dL Calcium 9.1 (8.4-10.2) mg/dL Total Bilirubin 0.90 (0.1-1.2) mg/dL AST 26 (5-40) units/L ALT 21 (7-56) units/L Alkaline Phosphatase 88 (35-129) units/L Troponin T < 0.010 (0.00-0.029) ng/mL Total Protein 9.0 H (6.3-8.2) g/dL Albumin 4.1 (3.9-5) g/dL Albumin/Globulin Ratio 0.8 % - Radiology Data Radiology results: report reviewed, image reviewed Chest x-ray: Shows no acute cardiopulmonary disease - Medical Decision Making Chief medical diagnosis: Gastroenteritis Differential medical diagnosis pulmonary embolism, dehydration, electrolyte abnormality IT IV fluids, CBC, BMP, urinalysis, IV Reglan, IV Benadryl, IV antiemetics and IV pain medicine also get a VQ scan and a CT scan of the abdomen and pelvis. ED Disposition Clinical Impression: Ileus, Abdominal pain, Dermoid cyst, Nausea & vomiting Disposition: DC-01 TO HOME OR SELFCARE Condition: Stable Instructions: Abdominal Pain (ED) Prescriptions: amLODIPine [Norvasc] 10 mg PO QDAY #90 tablet Insulin NPH/Regular [NovoLIN 70/30] 5 unit SUB-Q BIDDIAB #100 units Insulin Regular, Human [Novolin R] 1 dose SQ ACHS PRN #1 vial PRN Reason: Hyperglycemia Labetalol [Normodyne TAB] 200 mg PO BID #60 tablet oxyCODONE /ACETAMINOPHEN [Percocet 5/325 mg] 1 tab PO Q6H PRN #10 tablet PRN Reason: Pain , Severe (7-10) Promethazine [Phenergan TAB] 25 mg PO Q6HR PRN #20 tab PRN Reason: Nausea Referrals: PRIMARY CARE, [Referring] - 3-5 Days MARCK VIDAL MD [Staff Physician] - 3-5 Days (Dr. Pulliam is an [employer]CY[employer] REPA[employer]. 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 for further evaluation of possible dermoid cyst seen on your CT abdomen and pelvis) <LEOBARDO PUGH K - Last Filed: 04/16/18 22:53> ED Review of Systems ROS: Stated complaint: N/V Other details as noted in HPI ED Course Vital Signs 04/16/18 04/16/18 04/16/18 14:15 15:50 16:46 Temperature 100 F H Pulse Rate 130 H 129 H 139 H Respiratory 20 16 16 Rate Blood Pressure 160/105 Blood Pressure 185/82 208/126 [Left] O2 Sat by Pulse 96 95 96 Oximetry 04/16/18 04/16/18 04/16/18 17:26 17:28 17:30 Temperature Pulse Rate 133 H 130 H 131 H Respiratory 19 20 19 Rate Blood Pressure 157/83 Blood Pressure 150/83 [Left] O2 Sat by Pulse 95 94 93 Oximetry 04/16/18 04/16/18 04/16/18 17:46 18:00 18:16 Temperature Pulse Rate 134 H 131 H 127 H Respiratory 40 H 17 22 Rate Blood Pressure 170/76 172/75 141/72 Blood Pressure 141/72 [Left] O2 Sat by Pulse 92 95 Oximetry 04/16/18 04/16/18 04/16/18 18:30 18:46 19:00 Temperature Pulse Rate 132 H 129 H 130 H Respiratory 29 H 52 H 52 H Rate Blood Pressure 141/72 141/72 165/100 Blood Pressure [Left] O2 Sat by Pulse 90 89 Oximetry 04/16/18 04/16/18 04/16/18 19:16 19:30 19:45 Temperature Pulse Rate 135 H 131 H 130 H Respiratory 17 21 16 Rate Blood Pressure 162/60 152/93 150/84 Blood Pressure [Left] O2 Sat by Pulse 95 96 98 Oximetry 04/16/18 04/16/18 04/16/18 19:53 20:15 21:06 Temperature Pulse Rate 128 H 108 H Respiratory 21 25 H Rate Blood Pressure 150/84 153/97 Blood Pressure 150/84 [Left] O2 Sat by Pulse 97 98 98 Oximetry 04/16/18 04/16/18 04/16/18 21:15 21:30 21:45 Temperature Pulse Rate 112 H 106 H 106 H Respiratory 13 22 14 Rate Blood Pressure 162/101 158/101 153/99 Blood Pressure [Left] O2 Sat by Pulse 98 98 97 Oximetry 04/16/18 04/16/18 04/16/18 22:00 22:15 22:30 Temperature Pulse Rate 115 H 104 H 101 H Respiratory 24 19 19 Rate Blood Pressure 153/99 154/97 143/96 Blood Pressure [Left] O2 Sat by Pulse 97 97 98 Oximetry 04/16/18 22:41 Temperature Pulse Rate 97 H Respiratory 19 Rate Blood Pressure Blood Pressure 143/96 [Left] O2 Sat by Pulse 98 Oximetry - Reevaluation(s) Reevaluation #1: 04/16/18 22:48 Patient tolerating po well. Heart rate has normalized. CT scan VQ scan studies discussed with patient and family. ED Medical Decision Making - Lab Data Result diagrams: 04/16/18 14:57 04/16/18 14:57 - Radiology Data Radiology results: report reviewed (CT abdomen and pelvis, CT head, VQ scan), image reviewed (CT abdomen and pelvis, CT head, VQ scan) Findings [facility] [address] [place] [address] Cat Scan Report Signed Patient: SANJIV LANGSTON MR#: [id number] : 1980 Acct:[id number] Age/Sex: 37 / F ADM Date: 04/16/18 Loc: ED Attending Dr: Ordering Physician: JACE MANCILLA MD Date of Service: 04/16/18 Procedure(s): CT abdomen pelvis wo con Accession Number(s): [id number] cc: JACE MANCILLA MD FINAL REPORT EXAM: CT ABDOMEN PELVIS WO CON HISTORY: abd pain TECHNIQUE: Helical CT scan through the abdomen and pelvis without contrast. Images are reconstructed in the sagittal and coronal planes. PRIORS: None. FINDINGS: Solid organ and bowel evaluation is limited without intravenous contrast. Bowel evaluation is limited without oral contrast. Images through the lung bases show mild bibasilar subsegmental atelectasis. There is diffuse low-attenuation of the liver consistent with fatty infiltration. Otherwise, the liver appears normal. The gallbladder, pancreas, spleen and left adrenal gland appear grossly normal. There is a 3.6 x 2.0 cm right mass consistent with an adrenal adenoma. There is a 4 mm nonobstructing stone in the lower pole of the right kidney. There are 2 adjacent nonobstructing stones in the lower pole of the left kidney measuring 4 and 3 mm respectively. Otherwise, the kidneys appear grossly normal. There is no hydronephrosis or ureterolithiasis. There is a right adnexal mass measuring 2.9 x 3.8 x 3.8 cm. This composed mostly of fatty tissue, has a soft tissue nodule and a coarse calcification. The left ovary of and uterus appear grossly normal. The stomach appears grossly within normal limits. There are few mildly dilated loops of small bowel in the central abdomen with air-fluid levels. There is no associated inflammatory change. The right and transverse colon also have air- fluid levels. The appendix is absent. The abdominal aorta has a normal diameter. The bones and subcutaneous soft tissues are unremarkable for age. IMPRESSION: 1. Mildly dilated loops of small bowel with air-fluid levels in the small bowel and right and transverse colon. Findings most likely represent an ileus. 2. Right adnexal mass consistent with a dermoid 3. Diffuse fatty infiltration of the liver 4. Bilateral nephrolithiasis without evidence of hydronephrosis or ureterolithiasis. Transcribed By: ALEC Dictated By: ERICK BUENO MD Electronically Authenticated By: ERICK BUENO MD Signed Date/Time: 04/16/182112 DD/ 10 TD/TT: 04/16/182110 Findings [address] [address] Nuclear Medicine Report Signed Patient: SANJIV LANGSTON MR#: [id number] : 1980 Acct:[id number] Age/Sex: 37 / F ADM Date: 04/16/18 Loc: ED Attending Dr: Ordering Physician: JACE MANCILLA MD Date of Service: 04/16/18 Procedure(s): NM lung scan perf/vent Accession Number(s): [id number] cc: JACE MANCILLA MD FINAL REPORT EXAM: NM LUNG SCAN PERF/VENT HISTORY: concern for PE TECHNIQUE: The nuclear medicine ventilation perfusion study was performed. The patient was given 22 mCi of Xe 133 gas for the ventilation study and 5.00 mCi of technetium 99m MAA for the perfusion study. Images were acquired in the standard projections. Correlation is made with chest radiograph performed on the same date. PRIORS: None. FINDINGS: There is normal distribution of the radiopharmaceutical from both the ventilation and perfusion studies. There are no defects. IMPRESSION: Normal VQ scan. No evidence of PE. Transcribed By: [facility] Dictated By: ERICK BUENO MD Electronically Authenticated By: ERICK BUENO MD Signed Date/Time: 04/16/182230 DD/ 28 TD/TT: 04/16/182228 Findings [address] [address] Cat Scan Report Signed Patient: SANJIV LANGSTON MR#: [id number] : 1980 Acct:[id number] Age/Sex: 37 / F ADM Date: 04/16/18 Loc: ED Attending Dr: Ordering Physician: JACE MANCILLA MD Date of Service: 04/16/18 Procedure(s): CT head/brain wo con Accession Number(s): [id number] cc: JACE MANCILLA MD FINAL REPORT EXAM: CT HEAD/BRAIN WO CON HISTORY: headache TECHNIQUE: CT was performed from the foramen magnum through the vertex in the axial plane without the use of intravenous contrast. PRIORS: None. FINDINGS: The doran/white matter attenuation pattern is normal. There is no mass lesion or mass effect. There are no abnormal extra-axial fluid collections. There is no evidence of acute intracranial hemorrhage or infarct. The ventricles are of normal size and configuration. The skull and orbits are unremarkable. The visualized paranasal sinuses are clear. IMPRESSION: Normal CT of the head. Transcribed By: ALEC Dictated By: ERICK BUENO MD Electronically Authenticated By: ERICK BUENO MD Signed Date/Time: 04/16/182036 DD/ 35 TD/TT: 04/16/182035 Critical care attestation.: If time is entered above; I have spent that time in minutes in the direct care of this critically ill patient, excluding procedure time. ED Disposition Is pt being admited?: No Does the pt Need Aspirin: No Time of Disposition: 22:52
[2018-04-16] MEDS ORDERED: DECADRON IV ONE (18:57)
[2018-04-16] MEDS ORDERED: FIORICET PO ONE (18:57)
[2018-04-16] MEDS ORDERED: VERSED IV NR (20:00)
--- NOTE | 2018-04-16 20:37 | Cat Scan Report ---
FINAL REPORT EXAM: CT HEAD/BRAIN WO CON HISTORY: headache TECHNIQUE: CT was performed from the foramen magnum through the vertex in the axial plane without th e use of intravenous contrast. PRIORS: None. FINDINGS: The doran/white matter attenuation pattern is normal. There is no mass lesion or mass effect. There ar e no abnormal extra-axial fluid collections. There is no evidence of acute intracranial hemorrhage or infarct. The ventricles are of normal size and configuration. The skull and orbits are unremarkable . The visualized paranasal sinuses are clear. IMPRESSION: Normal CT of the head.
[2018-04-16 21:09] LABS: Bilirubin,Urine NEG (Negative); Blood,Urine SM (Negative); Color,Urine Yellow (Yellow); Mucus,Urine FEW /HPF; Urobilinogen,Urine < 2.0 mg/dL (<2.0)
--- NOTE | 2018-04-16 21:13 | Cat Scan Report ---
FINAL REPORT EXAM: CT ABDOMEN PELVIS WO CON HISTORY: abd pain TECHNIQUE: Helical CT scan through the abdomen and pelvis without contrast. Images are reconstructed in the sagittal and coronal planes. PRIORS: None. FINDINGS: Solid organ and bowel evaluation is limited without intravenous contrast. Bowel evaluation is limited without oral contrast. Images through the lung bases show mild bibasilar subsegmental atelectasis. There is diffuse low-attenuation of the liver consistent with fatty infiltration. Otherwise, the live r appears normal. The gallbladder, pancreas, spleen and left adrenal gland appear grossly normal. There is a 3.6 x 2.0 cm right mass consistent with an adrenal adenoma. There is a 4 mm nonobstructing stone in the lower pole of the right kidney. There are 2 adjacent nono bstructing stones in the lower pole of the left kidney measuring 4 and 3 mm respectively. Otherwise, the kidneys appear grossly normal. There is no hydronephrosis or ureterolithiasis. There is a right adnexal mass measuring 2.9 x 3.8 x 3.8 cm. This composed mostly of fatty tissue, has a soft tissue nodule and a coarse calcification. The left ovary of and uterus appear grossly normal. The stomach appears grossly within normal limits. There are few mildly dilated loops of small bowel in the central abdomen with air-fluid levels. There is no associated inflammatory change. The right and transverse colon also have air-fluid levels. The appendix is absent. The abdominal aorta has a normal diameter. The bones and subcutaneous soft tissues are unremarkable for age. IMPRESSION: 1. Mildly dilated loops of small bowel with air-fluid levels in the small bowel and right and transve rse colon. Findings most likely represent an ileus. 2. Right adnexal mass consistent with a dermoid 3. Diffuse fatty infiltration of the liver 4. Bilateral nephrolithiasis without evidence of hydronephrosis or ureterolithiasis.
--- NOTE | 2018-04-16 22:31 | Nuclear Medicine Report ---
FINAL REPORT EXAM: NM LUNG SCAN PERF/VENT HISTORY: concern for PE TECHNIQUE: The nuclear medicine ventilation perfusion study was performed. The patient was given 22 mCi of Xe 133 gas for the ventilation study and 5.00 mCi of technetium 99m MAA for the perfusion stud y. Images were acquired in the standard projections. Correlation is made with chest radiograph perfo rmed on the same date. PRIORS: None. FINDINGS: There is normal distribution of the radiopharmaceutical from both the ventilation and perfusion studi es. There are no defects. IMPRESSION: Normal VQ scan. No evidence of PE.
[2018-04-16 22:41] VITALS: BP 143/96
== END 2018-04-16 23:03 | disposition home or self-care (01) ==
LOC: ED 14:06
DX: K56.7 Ileus, unspecified (principal); D36.9 Benign neoplasm, unspecified site; I11.0 Hypertensive heart disease with heart failure; I50.9 Heart failure, unspecified; E11.9 Type 2 diabetes mellitus without complications; J45.909 Unspecified asthma, uncomplicated; Z87.442 Personal history of urinary calculi; Z88.8 Allergy status to other drugs, medicaments and biological substances; Z79.4 Long term (current) use of insulin
CPT/HCPCS: 36415; 70450; 71045; 74176; 78582; 80053; 81001; 84484; 85007; 85025; 93005; 93010; 96361; 96374; 96375; 99285; A9540; A9558; J1100; J1170; J1200; J2250; J2765; J3010; J7030; J7040